=== PATIENT | male | born 1940 | race Caucasian/White ===

== ENCOUNTER 2020-08-23 17:44 | Emergency (ER) | payer OTHER, SELFPAY ==
[2020-08-23 17:46] VITALS: BP 126/96; PULSE 57; RESP 16; TEMP 35.8; O2SAT 96; BMI 16.7
[2020-08-23 17:51] VITALS: BP 126/96; PULSE 58; RESP 18; TEMP 35.8; O2SAT 96
--- NOTE | 2020-08-23 18:00 | CM.ED ---
SOCIAL WORK Collaboration with Dr. Conley. Patient intoxicated. Plan for Crisis to evaluate once medically cleared. Ilene Serna, FINANCIAL REP, [employer]
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
--- NOTE | 2020-08-23 18:02 | EKG12_ITS ---
Test Reason : MENTAL HEALTH Blood Pressure : / mmHG Vent. Rate : 057 BPM Atrial Rate : 057 BPM P-R Int : 242 ms QRS Dur : 088 ms QT Int : 428 ms P-R-T Axes : 084 050 075 degrees QTc Int : 416 ms Sinus bradycardia with 1st degree A-V block Septal [place], age undetermined cannot be excluded Confirmed by JEREL CARPENTER, KIT ([id number]), technical editor ALEXANDR STODDARD ([id number]) on 08/29/2020 11:53:09 AM Referred By: JOEL Confirmed By:KIT BELTRÁN MD
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
[2020-08-23 18:37] LABS: Absolute Lymphocyte Count 2.85 X10^3/uL (0.83-4.51); Absolute Neutrophil Count 5.3 X10^3/uL (2.0-7.7); Basophil# 0.06 X10^3/uL; Basophil% 0.6 % (0-1); Eosinophil# 0.21 X10^3/uL; Eosinophils% 2.2 % (0-5); Hematocrit 40.6 % (40-54); Hemoglobin 13.2 g/dL (13.0-16.5); Lymphocyte # 2.85 X10^3/ul (4.0); Lymphocyte % 30.2 % (19-41); Mean Corp Hgb Conc 32.5 g/dL (32-36); Mean Corpuscular Volume 98.3 fL (80-94); Mean Platelet Vol. 10.3 fl (6.2-12.0); Monocyte# 0.97 X10^3/uL; Monocyte% 10.3 % (0-10); NRBC Flagged by Analyzer 0 % (0-5); Neutrophil # 5.27 X10^3/uL (2.7-7.7); Neutrophil % 55.7 % (47-70); Platelet Count 299 K/mm3 (150-450); RBC Distribution Width CV 13.9 % (11.6-14.6); RBC Distribution Width SD 50.1 fl (35.1-43.9); Red Blood Count 4.13 M/mm3 (4.6-6.2); White Blood Count 9.5 K/mm3 (4.4-11.0)
[2020-08-23 18:42] LABS: ALB/GLOB Ratio 0.8 RATIO (0.9-2.4); AST(SGOT) 13 U/L (15-37); Alanine Aminotransfer ALT/SGPT 13 U/L (16-61); Alkaline Phosphatase 95 U/L (45-117); Anion Gap 8 (5-15); BUN 12 mg/dL (7-18); BUN/Creat Ratio 11.4 RATIO (10-20); Calcium,Total 8.3 mg/dL (8.5-10.1); Chloride 108 mmol/L (98-107); Creatinine, Serum 1.05 mg/dL (0.70-1.30); EST Glomerular Filtration Rate 73 mL/min (>60); Est Glom Filt Rate - Afr Amer 88 mL/min (>60); Estimated Creatinine Clearance 45.84 ml/min; Globulin 3.9 g/dL (2.2-4.2); Glucose 98 mg/dL (74-106); Potassium 3.7 mmol/L (3.5-5.1); Protein, Total 6.9 g/dL (6.4-8.2); Sodium Level 141 mmol/L (136-145); Thyroid Stim Hormone (TSH) 2.81 uIU/mL (0.358-3.74)
[2020-08-23 18:42] LABS: Bacteria 0 SEEN /hpf (None Seen); Mucous, Urine 0 SEEN /hpf (<or=2+); Red Blood Cells-Urine 0 SEEN /hpf (0-5); Squamous Epithelial Cells - UA 0 SEEN /hpf (0-5); White Blood Cells 0 SEEN /hpf (0-5)
[2020-08-23 18:44] LABS: Color, Urine Yellow (Yellow); Glucose, Dipstick Normal (Normal); Ketone-Dipstick Negative (Negative); Leukocyte Esterase-Dipstick Negative /ul (Negative); Nitrite-Dipstick Negative (Negative); Occult Blood-Urine Negative /ul (Negative); Protein-Dipstick Negative (Negative); Urine Bilirubin Dipstick Negative (Negative); Urine Clarity Clear (Clear); Urine Urobilinogen Normal (Normal)
--- NOTE | 2020-08-23 18:58 | RAD_ITS ---
STUDY: X-RAY CHEST REASON FOR EXAM: Male, 80 years old. SUICIDAL, WEAKNESS TECHNIQUE: AP portable COMPARISON: None. FINDINGS: Lungs are hyperinflated but clear. There are multiple tiny metallic densities within the soft tissues of the left chest wall and possibly lung. There is no demonstrated pleural abnormality. Normal size heart. Normal mediastinum and chavez. Normal visualized pulmonary arteries. Normal visualized aortic arch and descending thoracic aorta. Dorsal spine and shoulders demonstrates degenerative changes.. Normal visualized clavicles. Old healed left rib fractures. There is no demonstrated abnormality of the visualized soft tissue structures of the upper abdomen. RAD/Chest 1 View (Portable) IMPRESSION: No acute cardiopulmonary pathology Electronically Signed: Rodrigue Wesley MD at 19:20 EDT , Service support ,
[2020-08-23 19:27] LABS: Amphetamine Urine VISTA NEGATIVE (<1000 ng/mL); Barbiturate Urine VISTA NEGATIVE (< 200 ng/mL); Benzodiazepine Urine VISTA NEGATIVE (< 200 ng/mL); Cocaine Urine VISTA NEGATIVE (< 300 ng/mL); Ecstacy Urine VISTA NEGATIVE (< 500 ng/mL); Methadone Urine VISTA NEGATIVE (< 300 ng/mL); PCP Urine VISTA NEGATIVE (< 25 ng/mL); THC Urine VISTA NEGATIVE (< 50 ng/mL); Vista UDS pH Range 5
[2020-08-23 21:04] VITALS: RESP 16
[2020-08-23 22:14] VITALS: PULSE 14
[2020-08-23 23:34] VITALS: RESP 14
[2020-08-23 23:46] VITALS: BP 154/49; PULSE 63; RESP 16; O2SAT 94
[2020-08-24] VITALS (17 sets, daily range): BP systolic 125–143; BP diastolic 35–107; PULSE 57–83; RESP 14–22; TEMP 36; O2SAT 92–98
[2020-08-24] MEDS: Gabapentin 100 MG Capsule PO (00:23)
[2020-08-24] MEDS: traMADol 50 MG Tablet PO ×2 (00:23→10:07)
--- NOTE | 2020-08-24 00:37 | ED.RN ---
c/o chest pain and pain going down left arm. hr 59 po 97 ra 138/66. c/o sob. rated pain 8 resp here to do ekg.
--- NOTE | 2020-08-24 00:41 | EKG12_ITS ---
Test Reason : CP Blood Pressure : / mmHG Vent. Rate : 058 BPM Atrial Rate : 058 BPM P-R Int : 240 ms QRS Dur : 056 ms QT Int : 408 ms P-R-T Axes : 092 011 059 degrees QTc Int : 400 ms Sinus bradycardia with 1st degree A-V block Septal [place], age undetermined Abnormal ECG Confirmed by JEREL CARPENTER, KIT ([id number]), assistant production editor ALEXANDR STODDARD ([id number]) on 08/29/2020 12:27:29 PM Referred By: ANGELA Confirmed By:KIT BELTRÁN MD
[2020-08-24] MEDS: Famotidine 200 MG/20 ML MDV 20 MG in 0.9% Normal Saline (Pres. free 8 ML 300 MG IV (00:55)
--- NOTE | 2020-08-24 01:00 | EKG12_ITS ---
Test Reason : CP Blood Pressure : / mmHG Vent. Rate : 057 BPM Atrial Rate : 057 BPM P-R Int : 234 ms QRS Dur : 084 ms QT Int : 412 ms P-R-T Axes : 081 038 083 degrees QTc Int : 401 ms Sinus bradycardia with 1st degree A-V block Septal infarct , age undetermined Abnormal ECG Confirmed by JEREL CARPENTER, KIT ([id number]), index editor ALEXANDR STODDARD ([id number]) on 08/29/2020 12:27:52 PM Referred By: ANGELA Confirmed By:KIT BELTRÁN MD
[2020-08-24] MEDS: Gabapentin 100 MG Capsule 200 MG PO (02:07)
--- NOTE | 2020-08-24 02:40 | NURSING ---
CALLED CRISIS AND FAXED CHART
--- NOTE | 2020-08-24 07:59 | NURSING ---
called crisis, talked to curtis. will fax chart to crisis
--- NOTE | 2020-08-24 08:07 | NURSING ---
FAXED PINK SLIP AND 3 EKGS TO ROBBY, ALEXIS
--- NOTE | 2020-08-24 09:01 | NURSING ---
ALEXIS BURNHAM, CALLED TO TALK TO PATIENT. SHE WILL COME SEE HIM
--- NOTE | 2020-08-24 09:20 | NURSING ---
TEJ, [facility]IS[facility], HERE FOR PATIENT
[2020-08-24] MEDS: Gabapentin 600 MG Tablet PO (10:08)
--- NOTE | 2020-08-24 11:52 | ED.RN ---
per arpita at the counseling center [facility] [place], they knew nothing of the pt coming. a message sent to the counseling center for arpita to call back.
--- NOTE | 2020-08-24 12:10 | ED.RN ---
spoke with arpita at crisis. she will call when she has more info.
--- NOTE | 2020-08-24 15:58 | ED.RN ---
PT AWAITING ACCEPTANCE OF REFERRAL MADE TO THE [facility]. PER MAGALI AIRPLANE CHARTER CLERK, SHE WILL CALL TO CHECK ON THE STATUS OF THE CHART WITHIN THE NEXT HALF AN HOUR.
== END 2020-08-24 19:25 ==
PROVIDERS: Emergency Medicine; Emergency Provider Emergency Medicine; PCP Dentist
DX: F10.129 Alcohol abuse with intoxication, unspecified (principal); Y90.8 Blood alcohol level of 240 mg/100 ml or more; F32.9 Major depressive disorder, single episode, unspecified; V59.88XA Occupant (driver) (passenger) of pick-up truck or van injured in other specified transport accidents, initial encounter; Y92.9 Unspecified place or not applicable; R07.9 Chest pain, unspecified; R06.02 Shortness of breath; R45.851 Suicidal ideations; F17.200 Nicotine dependence, unspecified, uncomplicated
CPT/HCPCS: 36415; 70450; 71045; 72125; 80053; 80307; 80320; 81001; 84443; 84484; 85025; 87635; 93005; 96365; 99285; A4216; G0480; J3490; U0003

== ENCOUNTER 2021-06-29 14:01 | Emergency (ER) | payer OTHER, SELFPAY ==
[2021-06-29 14:02] VITALS: BP 138/62; PULSE 88; RESP 18; TEMP 37.1; O2SAT 97; BMI 14.3
[2021-06-29 15:08] LABS: Absolute Lymphocyte Count 0.96 X10^3/uL (0.83-4.51); Absolute Neutrophil Count 9.1 X10^3/uL (2.0-7.7); Basophil# 0.04 X10^3/uL; Basophil% 0.4 % (0-1); Eosinophil# 0.01 X10^3/uL; Eosinophils% 0.1 % (0-5); Hematocrit 36.8 % (40-54); Hemoglobin 12.3 g/dL (13.0-16.5); Lymphocyte # 0.96 X10^3/ul (0.83-4.51); Lymphocyte % 8.9 % (19-41); Mean Corp Hgb Conc 33.4 g/dL (32-36); Mean Corpuscular Volume 89.8 fL (80-94); Mean Platelet Vol. 10.6 fl (6.2-12.0); Monocyte# 0.62 X10^3/uL; Monocyte% 5.8 % (0-10); NRBC Flagged by Analyzer 0 % (0-5); Neutrophil # 9.08 X10^3/uL (2.7-7.7); Neutrophil % 84.5 % (47-70); Platelet Count 288 K/mm3 (150-450); RBC Distribution Width CV 13.3 % (11.6-14.6); RBC Distribution Width SD 44.1 fl (35.1-43.9); White Blood Count 10.7 K/mm3 (4.4-11.0)
[2021-06-29 15:23] LABS: Anion Gap 7 (5-15); BUN 14 mg/dL (7-18); BUN/Creat Ratio 11.5 RATIO (10-20); Calcium,Total 8.7 mg/dL (8.5-10.1); Chloride 104 mmol/L (98-107); Creatinine, Serum 1.22 mg/dL (0.70-1.30); EST Glomerular Filtration Rate 61 mL/min (>60); Est Glom Filt Rate - Afr Amer 74 mL/min (>60); Estimated Creatinine Clearance 32.02 ml/min; Glucose 153 mg/dL (74-106); Potassium 3.8 mmol/L (3.5-5.1); Sodium Level 135 mmol/L (136-145)
[2021-06-29 15:34] LABS: Alcohol, Blood (Medical)-Serum < 3.0 mg/dL
--- NOTE | 2021-06-29 15:41 | EX.ED.DYSGE1 ---
HPI History of Present Illness Chief Complaint: Suicidal Informant: patient Narrative Narrative: Patient presents by private vehicle with depression symptoms. Patient eventually during discussion states sudden symptoms yesterday. He denies suicidal homicidal ideations. He states he is followed by [facility] he is on trazodone to help him sleep. He denies any history of anxiety depression or PTSD. He denies bipolar or schizophrenia. Patient currently under house arrest, states for the past 3 months, will be on it for another month. He had a DUI with alcohol. He stopped drinking in August. He has been on Vivitrol shots monthly. He denies illicit drug use. He lives alone. He states he called his cousin who took him to the ED today. Patient denies fevers cough urine symptoms. Denies vomiting or diarrhea. He states occasionally use milk of magnesia to help with bowel movements. Patient denies any auditory hallucinations. Upon discussion of visual hallucinations, he states he seeds chairs in his home however states they are there. Prior similar symptoms: No PFSH PFSH Medical History (Updated 06/29/21 @ 17:[address] Iain Krishna DO) Alcohol abuse Depression Home Medications trazodone 100 mg PO QHS 06/29/21 [History Last Taken Unknown] Allergy/AdvReac Type Severity Reaction Status Date / Time No Known Allergies Allergy Verified 06/29/21 14:05 Social History Smoking Status: Current every day smoker tobacco type: cigarettes ROS ROS ED Constitutional Constitutional ED: Denies chills, fever(s) or sweats Eyes Eyes: Denies change in vision ENT ENT ED: Denies dysphagia or sore throat Cardiovascular Cardiovascular: Denies chest pain, leg edema, palpitations or racing heartbeat Respiratory/Chest Respiratory/Chest: Denies cough, dyspnea or dyspnea on exertion Gastrointestinal Gastrointestinal: Denies abdominal pain, diarrhea, nausea or vomiting Genitourinary Genitourinary ED: Denies dysuria, hematuria or urinary frequency Musculoskeletal Musculoskeletal: Denies back pain, extremity pain or neck pain Integumentary Denies rash or wounds Neurologic Neurologic: Denies headache(s), paresthesias or weakness Psychiatric Psychiatric: Reports depression; Denies hallucinations, homicidal ideation or visual hallucinations EXAM Physical Exam Const Vital Signs: 06/29/21 14:02 06/29/21 17:17 Temperature 98.7 F Temperature Source Temporal Pulse Rate 88 66 Respiratory Rate 18 18 Blood Pressure 138/62 H 159/61 H Blood Pressure Mean 87 93 Pulse Ox 97 97 Oxygen Delivery Method Room Air Room Air Positive cachectic and unkempt General Appearance ED: unkempt, cachectic and NAD Nutritional Appearance: cachectic HEENT Reports moist mucous membranes normocephalic and atraumatic Eyes PERRL, EOMs intact bilaterally and conjunctivae normal General Eye ED: Yes normal appearance of both eyes Neck no lymphadenopathy and supple General: Negative for tenderness Chest Wall Chest: Negative for tenderness Resp normal respiratory effort and normal air movement Effort and Inspection: symmetric chest movement; Negative for respiratory distress Cardio regular rate, regular rhythm and no murmurs Peripheral Pulses: pulses 2+ throughout GI normal to inspection, nondistended, normoactive bowel sounds and non-tender Palpation: Negative for guarding or rebound tenderness present Back/Spine no CVA tenderness and no thoracic nor lumbar tenderness Extremity normal to inspection General Extremety ED: Negative for edema or tenderness General Extremity: Negative for edema Neuro oriented x3 and no sensory deficits noted Sensorium / Orientation: awake and alert Psych Psych Narrative: Denies suicidal or homicidal ideations. Tearful with flat affect. Appearance: unkempt Skin no rashes or lesions noted and no wounds MDM MDM MDM Narrative Medical decision making narrative: Patient depression symptoms tearful on exam. Mental health work-up with clearance initiated. Clinical Resource Coordinator was present, came out discussed patient admitted to attempted overdose with trazodone at 11 PM that was over 4 hours ago. Patient admitted to taking 11 trazodone tabs. We will add an aspirin and Tylenol level given EKG. Will monitor. We will plan to admit to psychiatric facility. 1800: Multiple reevaluation patient remained stable. Work-up with negative labs including aspirin and Tylenol. His vitals remained stable. Patient evaluated by case management in the ED, agrees the patient will need to be admitted to the facility. He is currently medically cleared. [place] slip will be filled out. Lab Data Attestation: I reviewed the patient's lab results. Labs: Laboratory Results - last 24 hr 06/29/21 06/29/21 06/29/21 14:55 14:55 14:55 WBC 10.7 RBC 4.10 L Hgb 12.3 L Hct 36.8 L MCV 89.8 MCH 30.0 MCHC 33.4 RDW Std Deviation 44.1 H RDW Coeff of Lauren 13.3 Plt Count 288 MPV 10.6 Immature Gran % (Auto) 0.300 Neut % (Auto) 84.5 H Lymph % (Auto) 8.9 L [place] % (Auto) 5.8 Eos % (Auto) 0.1 Baso % (Auto) 0.4 Absolute Neuts (auto) 9.1 H Absolute Lymphs (auto) 0.96 Nucleated RBC % 0 Sodium 135 L Potassium 3.8 Chloride 104 Carbon Dioxide 24.0 Anion Gap 7 BUN 14 Creatinine 1.22 Estim Creat Clear Calc 32.02 Est GFR (MDRD) Af Amer 74 Est GFR (MDRD) Non-Af 61 BUN/Creatinine Ratio 11.5 Glucose 153 H Calcium 8.7 Salicylates Acetaminophen Ur Drug Screen Comment Ethyl Alcohol < 3.0 06/29/21 06/29/21 14:55 17:45 WBC RBC Hgb Hct MCV MCH MCHC RDW Std Deviation RDW Coeff of Lauren Plt Count MPV Immature Gran % (Auto) Neut % (Auto) Lymph % (Auto) [place] % (Auto) Eos % (Auto) Baso % (Auto) Absolute Neuts (auto) Absolute Lymphs (auto) Nucleated RBC % Sodium Potassium Chloride Carbon Dioxide Anion Gap BUN Creatinine Estim Creat Clear Calc Est GFR (MDRD) Af Amer Est GFR (MDRD) Non-Af BUN/Creatinine Ratio Glucose Calcium Salicylates 6.4 Acetaminophen < 2.0 L Ur Drug Screen Comment Ethyl Alcohol EKG Initial EKG: Attestation: I personally reviewed and interpreted this EKG as follows: Discharge Plan Triage Chief Complaint: Suicidal Other Complaint: Overdose ED Provider: Iain Krishna Dx/Rx/DC Orders Clinical Impression: Depression, Ingestion of unknown drug Prescriptions: No Action trazodone 100 mg Tablet 100 mg PO QHS RF: 0 Primary Care Provider: Care Physician,No Primary Referrals: Care Physician,No Primary [Primary Care Provider] -
--- NOTE | 2021-06-29 15:50 | EKG12_ITS ---
Test Reason : MENTAL CLEARANCE Blood Pressure : / mmHG Vent. Rate : 069 BPM Atrial Rate : 069 BPM P-R Int : 206 ms QRS Dur : 086 ms QT Int : 396 ms P-R-T Axes : 088 031 089 degrees QTc Int : 424 ms Normal sinus rhythm Anteroseptal infarct , age undetermined Abnormal ECG Confirmed by JEREL CARPENTER, KIT ([id number]), script editor ALEXANDR STODDARD ([id number]) on 07/03/2021 10:36:50 AM Referred By: [email or web address] Confirmed By:KIT BELTRÁN MD
--- NOTE | 2021-06-29 16:56 | CM.ED ---
SOCIAL WORK ASSESSMENT Referral Source: Reason for Consult: Mental Health Chief Compliant: KATIE met with patient, and he reported he overdose on ?sleeping pills?. He reported he wanted to . He stated that the feeling started yesterday. Patient took 10-11 sleeping pills. Marital/Social History: Single Living Situation: Lives by himself. Plans to go to [facility] after he rents or sells his house. Support/Resources: Initially said ?myself? for support but then stated his cousin, Francoise, who brought him to the ED was a support. History: Patient was in the [place] for 6 years. No combat. Honorable discharge. Gets VA services through [facility]. Education and Employment History: Patient is retired. He did not graduate high school. The last year attended in school was the 12th grade. 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 Mental Health Treatment/History: Patient reports that he receives his psychiatric treatment from the [facility]. He sees the staff at the [facility] monthly. Patient said that he gets his vivitrol shot monthly from Neena at the [facility]. Patient said that he was hospitalized for psych treatment at [facility] one year ago. Patient reports he is med compliant ?except for yesterday and today?. Triggers/Stressors: Patient said that he worries about his health and ?my groceries?. Patient said that his stepdaughter does his grocery shopping and patient any issues with not having enough food. Coping Skills: ?nothing? Substance Abuse History: Patient denied drug use. Patient denied alcohol use. He reports he has not drank alcohol since 08/23. He said that he has gotten the vivitrol shot since August 2020. Abuse: Patient denied any abuse Risk to Self/Others: Suicidal- Patient reports that he is suicidal. He reports he attempted suicide this morning using his ?sleeping pills?. He reports that he attempted at approximately 11:00am. He said that when he overdosed, he called his cousin Francoise from bed and said ?can you take me to the ED? I took sleeping pills?. Patient reports he wanted to , and the thoughts began yesterday. He reports that he took 11 pills today. He also reported no previous suicide attempt. Homicidal: Denied Violence: Denied Mental Status Exam: Orientation: X4 Memory: Intact Appearance/General Behavior: Disheveled, very skinny, tearful and at times he does not answer due to him being tearful and appearing to be emotional. Mood and Affect: Depressed mood and affect Thought Process: Patient denied AH/VH General Intellectual Functioning: Average Judgement: Impaired due to mental health Insight: Poor Assessment: Patient reports overdosing on sleeping pills and wanting to . This occurred at 11:00am this morning. Thus, patient needs inpatient psych hospitalization for medication management and stabilization. Patient is wearing an ankle bracelet. He reports he is on probation through municipal court. He reports that the ankle bracelet is related to his DUI. He reports he has worn it for 3 months and now must wear it an additional month. Plan: Inpatient psych unit Kacie DIAZ
--- NOTE | 2021-06-29 16:57 | CM.ED ---
SOCIAL WORK ASSESSMENT Referral Source: Reason for Consult: Mental Health Chief Compliant: KATIE met with patient, and he reported he overdose on ?sleeping pills?. He reported he wanted to . He stated that the feeling started yesterday. Patient took 10-11 sleeping pills. Marital/Social History: Single Living Situation: Lives by himself. Plans to go to [facility] after he rents or sells his house. Support/Resources: Initially said ?myself? for support but then stated his cousin, Francoise, who brought him to the ED was a support. History: Patient was in the [employer] for 6 years. No combat. Honorable discharge. Gets VA services through [facility]. Education and Employment History: Patient is retired. He did not graduate high school. The last year attended in school was the 12th grade. 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 Mental Health Treatment/History: Patient reports that he receives his psychiatric treatment from the [facility]. He sees the staff at the [facility] monthly. Patient said that he gets his vivitrol shot monthly from Neena at the [facility]. Patient said that he was hospitalized for psych treatment at [facility] one year ago. Patient reports he is med compliant ?except for yesterday and today?. Triggers/Stressors: Patient said that he worries about his health and ?my groceries?. Patient said that his stepdaughter does his grocery shopping and patient any issues with not having enough food. He said ? I have plenty of food?. Coping Skills: ?nothing? Substance Abuse History: Patient denied drug use. Patient denied alcohol use. He reports he has not drank alcohol since 08/23. He said that he has gotten the vivitrol shot since August 2020. Abuse: Patient denied any abuse Risk to Self/Others: Suicidal- Patient reports that he is suicidal. He reports he attempted suicide this morning using his ?sleeping pills?. He reports that he attempted at approximately 11:00am. He said that when he overdosed, he called his cousin Francoise from bed and said ?can you take me to the ED? I took sleeping pills?. Patient reports he wanted to , and the thoughts began yesterday. He reports that he took 11 pills today. He also reported no previous suicide attempt. Homicidal: Denied Violence: Denied Mental Status Exam: Orientation: X4 Memory: Intact Appearance/General Behavior: Disheveled, very skinny, tearful and at times he does not answer due to him being tearful and appearing to be emotional. Mood and Affect: Depressed mood and affect Thought Process: Patient denied AH/VH General Intellectual Functioning: Average Judgement: Impaired due to mental health Insight: Poor Assessment: Patient reports overdosing on sleeping pills and wanting to . This occurred at 11:00am this morning. Thus, patient needs inpatient psych hospitalization for medication management and stabilization. Patient is wearing an ankle bracelet. He reports he is on probation through municipal court. He reports that the ankle bracelet is related to his DUI. He reports he has worn it for 3 months and now must wear it an additional month. Plan: Inpatient psych unit Kacie DIAZ
--- NOTE | 2021-06-29 16:59 | ED.RN ---
DE called and does not have a bed for pt. They would like called when pt is admitted. # is [phone] ext [phone] They would also like chart faxed to them at [phone] GIOVANI Vora
[2021-06-29 17:02] LABS: Acetaminophen (Tylenol) Level < 2.0 ug/mL (10.0-30.0); Salicylate 6.4 mg/dL (2.8-20.0)
[2021-06-29 17:17] VITALS: BP 159/61; PULSE 66; RESP 18; O2SAT 97
--- NOTE | 2021-06-29 18:03 | CM.ED ---
KATIE Note KATIE called [facility] and spoke to Fareed in the transfer center ([id number]). He said to speak to Sally. Sally said that they do not have [facility]. She said to look elsewhere for the level of care patient needs. She requested that she be called and advised where patient is discharged from [place] to. Her contact number is [phone] Ext [phone]. KATIE made referral to [facility]. Faxed referral to [facility] for review. KATIE received call from Geni patient's daughter wanting a update [phone]. She was updated. She reports that she is the HCPOA for patient. Plan: Inpatient psych Kacie DIAZ
[2021-06-29 18:11] LABS: Amphetamine Urine VISTA NEGATIVE (<1000 ng/mL); Barbiturate Urine VISTA NEGATIVE (< 200 ng/mL); Benzodiazepine Urine VISTA POSITIVE (< 200 ng/mL); Cocaine Urine VISTA NEGATIVE (< 300 ng/mL); Ecstacy Urine VISTA POSITIVE (< 500 ng/mL); Methadone Urine VISTA NEGATIVE (< 300 ng/mL); PCP Urine VISTA NEGATIVE (< 25 ng/mL); THC Urine VISTA NEGATIVE (< 50 ng/mL); Vista UDS pH Range 6
--- NOTE | 2021-06-29 19:24 | CM.ED ---
KATIE Note SW called [facility]. They can take patient but not until 8 am tomorrow. KATIE called and made referral to INP([facility]) SW made referral to [facility]. SW received call from patient's stepdaughter, Stephie and she wanted an update. SW updated her and advised her to speak to her stepsister, Geni Bagley for an update and she agreed. Stephie's number is [phone]. Plan: Inpatient Psych Kacie DIAZ
[2021-06-29 20:24] VITALS: BP 152/75; PULSE 70; RESP 16; TEMP 37.4; O2SAT 95
--- NOTE | 2021-06-29 21:03 | CM.ED ---
Addendum entered by Kacie Severino 06/29/21 21:22: When social sciences chair spoke to patient's daughter, Geni she indicated she would update her step sister, Stephie. Kacie DIAZ Original Note: KATIE received call from Joseline at [facility]. They can accept patient. KATIE faxed additional information to [facility]. SW spoke to patient and updated him regarding the discharge plan to [facility]. SW called patient's daughter and updated her about patient's status. Patient said that he probably should call probation tomorrow. SW agreed that was a good idea. Patient said I don't have their number. SW provided patient with [facility]. SW called [facility]. Accepting MD is Dr. Barnett. Patient will be in [facility]. RN to RN [phone] Bed [address] Of Note, KATIE had provided Ikita from [facility] with information about patient' s [facility] contact, Sally [phone]. KATIE updated [facility] at [facility] and provided her with information as to where patient is going, room assignment, unit ([facility]) and unit phone number. Sally reports no other information needed. [place] to arrange transport Plan: [facility] Kacie DIAZ
[2021-06-29 23:24] VITALS: RESP 16
== END 2021-06-29 23:24 ==
PROVIDERS: Emergency Provider Emergency Medicine
DX: T43.212A Poisoning by selective serotonin and norepinephrine reuptake inhibitors, intentional self-harm, initial encounter (principal); Y92.009 Unspecified place in unspecified non-institutional (private) residence as the place of occurrence of the external cause; F32.9 Major depressive disorder, single episode, unspecified; F17.210 Nicotine dependence, cigarettes, uncomplicated
CPT/HCPCS: 80048; 80307; 80329; 82077; 85025; 87426; 93005; 99285; P9612; G0480

== ENCOUNTER 2025-07-06 12:48 | Inpatient (IN) | payer OTHER, SELFPAY ==
[2025-07-06] VITALS (16 sets, daily range): BP systolic 126–161; BP diastolic 58–76; PULSE 74–98; RESP 16–18; TEMP 36.3–37.1; O2SAT 90–97; BMI 19.5
--- NOTE | 2025-07-06 12:53 | EKG12_ITS ---
Test Reason : REPEAT Blood Pressure : */* mmHG Vent. Rate : 78 BPM Atrial Rate : 78 BPM P-R Int : 192 ms QRS Dur : 68 ms QT Int : 400 ms P-R-T Axes : 79 -54 -51 degrees QTcB Int : 456 ms Normal sinus rhythm with sinus arrhythmia Left axis deviation Inferior infarct , age undetermined Anteroseptal infarct , age undetermined ST & T wave abnormality, consider lateral ischemia Abnormal ECG Confirmed by Elkin De La Vega ([id number]), city editor RANGEL BERNARDO ([id number]) on 07/07/2025 8:17:43 AM Referred By: Confirmed By: Elkin De La Vega
[2025-07-06 13:11] LABS: Hematocrit 42.5 % (40-54); Hemoglobin 14.0 g/dL (13.0-16.5); Immature Granulocytes Count 0.060 X10^3/uL (0.0-0.0); Mean Corp Hgb Conc 32.9 g/dL (32-36); Mean Corpuscular Volume 88.5 fL (80-94); Mean Platelet Vol. 10.3 fl (6.2-12.0); NRBC Flagged by Analyzer 0 % (0-5); Platelet Count 475 K/mm3 (150-450); RBC Distribution Width CV 13.0 % (11.6-14.6); RBC Distribution Width SD 41.8 fl (35.1-43.9); Red Blood Count 4.80 M/mm3 (4.6-6.2); White Blood Count 15.1 K/mm3 (4.4-11.0)
[2025-07-06 13:19] LABS: Prothrombin Time (Protime)PT. 13.8 SECONDS (11.7-14.9)
--- NOTE | 2025-07-06 13:20 | RAD_ITS ---
PROCEDURE: CHEST 1 VIEW (PORTABLE) 07/06/2025 REASON FOR EXAM: CHEST PAIN TECHNIQUE: Frontal view of the chest. COMPARISON: August 23, 2020 FINDINGS: Hardware: [place] is seen overlying the patient's left chest. Heart: Normal. The aorta is atherosclerotic. Lungs: Clear Bones: Minimal degenerative change about the shoulders. RAD/Chest 1 View (Portable) IMPRESSION: No acute cardiopulmonary process. Reading Location: [id number]
[2025-07-06 13:42] LABS: Anion Gap 13 (5-15); BUN 20 mg/dL (4-19); BUN/Creat Ratio 15.0 RATIO (10-20); Calcium,Total 8.9 mg/dL (7.6-11.0); Carbon Dioxide 23.7 mmol/L (21.0-32.0); Chloride 107 mmol/L (98-108); Estimated Creatinine Clearance 41.60 ml/min (50-250); Glucose 113 mg/dL (70-99); Potassium 3.9 mmol/L (3.3-5.1)
[2025-07-06 13:45] LABS: Troponin T High Sensitivity 2060 ng/L (<=22)
[2025-07-06] MEDS: HEPARIN/D5w 25,000 UNITS 25,000 UNITS/250 ML IV.SOLN. 8.1 UNITS CONT INF (14:10)
[2025-07-06] MEDS: Heparin Injection (Vial) 5,000 UNIT/ML VIAL 4000 UNIT IV (14:11)
[2025-07-06 14:16] LABS: Partial Thromboplast Time 31.4 Seconds (24.1-36.2)
--- NOTE | 2025-07-06 14:29 | EKG12_ITS ---
Test Reason : CP Blood Pressure : */* mmHG Vent. Rate : 86 BPM Atrial Rate : 86 BPM P-R Int : 180 ms QRS Dur : 72 ms QT Int : 382 ms P-R-T Axes : 84 -50 90 degrees QTcB Int : 457 ms Normal sinus rhythm with sinus arrhythmia Left axis deviation Cannot rule out Inferior infarct , age undetermined Anteroseptal infarct (cited on or before 24-Aug-2020) ST & T wave abnormality, consider lateral ischemia Abnormal ECG Confirmed by Elkin De La Vega ([id number]), index editor RANGEL BERNARDO ([id number]) on 07/07/2025 8:18:02 AM Referred By: JOSE Confirmed By: Elkin De La Vega
--- NOTE | 2025-07-06 14:51 | EDS_ITS ---
HPI History of Present Illness Chief Complaint: Chest Pain Narrative Narrative: Patient is an 84-year-old male presenting to the emergency department for chest pain since yesterday. Patient reports that it is left-sided. Does not radiate to his back, jaw or arm. [facility] Has a history of hypertension. Denies any family history of sudden cardiac , recent syncopal events or history of arrhythmias. States that the chest pain hurts more when he lays on his left side. He denies any history of blood clots. Reports some cough and congestion last week. He denies any cardiac history. When I evaluated the patient, he did not have chest pain. PFSH PFSH Medical History Depression Alcohol abuse Home Medications ?Medication ?Instructions ?Recorded ?Last Taken ?Type trazodone 100 mg tablet 100 mg PO QHS 06/29/21 Unkno wn History Allergy/AdvReac Type Severity Reaction Status Date / Time No Known Allergies Allergy Verified 07/06/25 12:49 Social History Smoking Status: Former smoker ROS ROS ED ROS Narrative See HPI EXAM Physical Exam Narrative Exam Narrative: Vital signs: Reviewed General: Alert and oriented. No acute distress HEENT: Head is normocephalic and atraumatic, sinuses nontender, pupils equal round and reactive. Nares are patent. Oropharynx and throat exams normal. Neck: Supple without lymphadenopathy nontender Cardiovascular: Regular rate and rhythm, no murmurs. No rubs or gallops. Normal S1 and S2. Normal and equal pulses throughout. Chest: Chest wall is atraumatic. There is no reproducible tenderness to palpation. Respiratory: Clear to auscultation bilaterally. No wheezes, rales, rhonchi Abdominal: Soft and nontender. Normal bowel sounds. No guarding or rebound. Nonsurgical abdomen Extremities: No tenderness. No bruising. Normal range of motion. Normal sensation. Skin: No rash or redness. Neurological: Cranial nerves II through XII are grossly intact. Normal strength and sensation. Normal cerebellar function The rest of the physical exam is unremarkable Const Vital Signs: 07/06/25 12:49 07/06/25 12:53 07/06/25 13:49 Temperature 98 F Temperature Source Oral Pulse Rate 98 78 Respiratory Rate 18 16 Blood Pressure 136/62 H 127/58 H Blood Pressure Mean 86 81 Pulse Ox 92 90 90 Oxygen Delivery Method Room Air Room Air Room Air 07/06/25 14:00 07/06/25 14:30 Temperature 97.4 F L Temperature Source Pulse Rate 94 83 Respiratory Rate 16 Blood Pressure 126/63 H 151/70 H Blood Pressure Mean 84 97 Pulse Ox 94 97 Oxygen Delivery Method MDM MDM MDM Narrative Medical decision making narrative: Patient is a 84-year-old male presenting to the emergency department for chest pain. Patient was seen and examined. Vitals are stable. Patient resting bed comfortably no acute distress. EKG shows sinus rhythm with a sinus arrhythmia. There is some mild ST elevation in V2 and V3 with coved ST morphology concerning for Brugada syndrome. Patient is pain free at time of my evaluation. Initial troponin of 2060. 324 mg chewable aspirin and heparin drip started. I did speak to aircraft electronics technical officer silicator, Dr. De La Vega, who recommended speaking to aircraft electronics technical officer instructor creeler, Dr. Whitney. He will be taking the patient to he lab animal technologist due to concern for NSTEMI with brugada EKG findings. Updated patient and at bedside of the findings and the plan. I also did speak with the hospitalist, Dr. Castro to update her on the patient for when he is out of the lab animal technologist for admission. Labs were reviewed after discussion with silicator. CBC with mild leukocytosis of 15.1. Normal hemoglobin. BMP with a very mild KERMIT, otherwise no significant abnormalities on BMP. Chest x-ray with no acute cardiopulmonary process. Clinical impression NSTEMI Brugada Lab Data Attestation: I reviewed the patient's lab results. Labs: Laboratory Results - last 24 hr 07/06/25 13:02 WBC 15.1 H RBC 4.80 Hgb 14.0 Hct 42.5 MCV 88.5 MCH 29.2 MCHC 32.9 RDW Std Deviation 41.8 RDW Coeff of Lauren 13.0 Plt Count 475 H MPV 10.3 Immature Gran % (Auto) 0.400 Neut % (Auto) 74.5 H Lymph % (Auto) 14.7 L Benzie % (Auto) 9.6 Eos % (Auto) 0.5 Baso % (Auto) 0.3 Absolute Neuts (auto) 11.2 H Absolute Lymphs (auto) 2.22 Nucleated RBC % 0 PT 13.8 INR 1.0 APTT 31.4 Sodium 144 Potassium 3.9 Chloride 107 Carbon Dioxide 23.7 Anion Gap 13 BUN 20 H Creatinine 1.30 H Estim Creat Clear Calc 41.60 L Est GFR (MDRD) Non-Af 55 L BUN/Creatinine Ratio 15.0 Glucose 113 H Calcium 8.9 Troponin T High Sens 2060 H* Radiography Diagnostic Testing: Clinical Impression(s) from Imaging Studies Chest X-Ray 07/06/25 13:20 IMPRESSION: No acute cardiopulmonary process. Reading [id number] Discharge Plan Triage Chief Complaint: Chest Pain ED Provider: Lashay James Dx/Rx/DC Orders Primary Care Provider: [facility]
--- NOTE | 2025-07-06 15:56 | CON.PCM.CA_ITS ---
Assessment & Plan Assessment/Plan (1) Non-STEMI (non-ST elevated myocardial infarction): PLAN: Coronary angiography reveals LAD, diagonal and RCA stenoses. His vessels are heavily calcified. He does have LV dysfunction as well. He will be reasonable to get a CT surgery opinion for heart team approach for revascularization. Patient will be better served by transfer to a tertiary facility for this. At this time, keep the patient on aspirin, statin, low-dose beta-brijesh. He can be resumed on heparin 4 hours after right radial hemostasis. If his blood pressure can tolerate, he can be started on low-dose LOUISA inhibitor as well. He does have CKD and his creatinine will need to be monitored closely. HPI Consult Data Date of Consult: 07/06/25 HPI Narrative Reason for Consultation: Chest pain, non-STEMI HPI Narrative: SHOBHA JOAQUIN, is a 84 M who presents with chest pain that has been going on since last night. In the emergency room EKG showed EKG changes suspicious for LAD territory ischemia. Patient's troponin was elevated. His chest pain had resolved. However due to patient's non-STEMI patient was brought to the Veterinary Practitioner after discussing risks and benefits. He underwent coronary angiography which revealed significant stenosis in the LAD, diagonal 1, RCA. His vessels are heavily calcified. His EF is around 35% with hypokinesis of the mid and distal anterior wall, apex. PFSH Medical History Depression Alcohol abuse Home Medications ?Medication ?Instructions ?Recorded ?Last Taken ?Type trazodone 100 mg tablet 100 mg PO QHS 06/29/21 Unkno wn History Allergy/AdvReac Type Severity Reaction Status Date / Time No Known Allergies Allergy Verified 07/06/25 12:49 Social History Smoking Status: Former smoker Physical Exam Const alert and oriented x3 HEENT normocephalic Eyes no scleral icterus Resp normal respiratory effort Charges/Coding Visit Charges Inpatient E&M: 55450 Init Hosp L1 Objective Data Vital Signs: Vital Signs Temp Pulse Resp BP Pulse Ox O2 Del Method 97.4 F L 83 16 151/70 H 97 Room Air 07/06/25 14:30 07/06/25 14:30 07/06/25 14:30 07/06/25 14:30 07/06/25 14:30 07/06/25 13:49 Oxygen Delivery Method Room Air Weight: 148 lb Body Mass Index (BMI) 19.5 Lab / Micro Data 07/06/25 13:02 07/06/25 13:02 Labs: Laboratory Results - last 24 hr 07/06/25 13:02: WBC 15.1 H, RBC 4.80, Hgb 14.0, Hct 42.5, MCV 88.5, MCH 29.2, MCHC 32.9, RDW Std Deviation 41.8, RDW Coeff of Lauren 13.0, Plt Count 475 H, MPV 10.3, Immature Gran % (Auto) 0.400, Neut % (Auto) 74.5 H, Lymph % (Auto) 14.7 L, [place] % (Auto) 9.6, Eos % (Auto) 0.5, Baso % (Auto) 0.3, Absolute Neuts (auto) 11.2 H, Absolute Lymphs (auto) 2.22, Nucleated RBC % 0, PT 13.8, INR 1.0, APTT 31.4, Sodium 144, Potassium 3.9, Chloride 107, Carbon Dioxide 23.7, Anion Gap 13, BUN 20 H, Creatinine 1.30 H, Estim Creat Clear Calc 41.60 L, Est GFR (MDRD) Non-Af 55 L, BUN/Creatinine Ratio 15.0, Glucose 113 H, Calcium 8.9, Troponin T High Sens 2060 H* Cardiology Labs/Tests 07/06/25 13:02: WBC 15.1 H, RBC 4.80, Hgb 14.0, Hct 42.5, MCV 88.5, MCH 29.2, MCHC 32.9, Plt Count 475 H, MPV 10.3, Immature Gran % (Auto) 0.400, Neut % (Auto) 74.5 H, Lymph % (Auto) 14.7 L, [place] % (Auto) 9.6, Eos % (Auto) 0.5, Baso % (Auto) 0.3, Absolute Neuts (auto) 11.2 H, Nucleated RBC % 0, PT 13.8, INR 1.0, APTT 31.4, Sodium 144, Potassium 3.9, Chloride 107, Carbon Dioxide 23.7, Anion Gap 13, BUN 20 H, Creatinine 1.30 H, Est GFR (MDRD) Non-Af 55 L, BUN/Creatinine Ratio 15.0, Glucose 113 H, Calcium 8.9 Rhythm: EKG: ECHO: Stress Test: Cardiac Cath: PCI: CT Surgery: Holter monitor: EPS: PPM: CXR: Chest CT Scan: Radiography Diagnostic Testing: Radiology Impression Chest X-Ray 07/06/25 13:20 IMPRESSION: No acute cardiopulmonary process. Reading Location: [id number] CHANDAN Risk Score for UA/STEMI Assesmment (YES = 1) Risk Stratification Applicable: No
--- NOTE | 2025-07-06 16:10 | CL.D_ITS ---
Patient Name: SHOBHA JOAQUIN Study Date: 07/06/2025 Performing: Yeni Whitney MD Ht: 73 inches 185.42 cm : 1940 Wt: 148.2 lbs 67.13 kg Age: 84 Gender: male BSA: 1.89 PROCEDURE(S) PERFORMED DC01-([id number])LHC/COR/LV CLINICAL PROFILE AND INDICATIONS Indications: ACS <= 24 hrs, NSTEMI Heart Failure: None CONCLUSIONS Multivessel coronary artery disease as described RECOMMENDATIONS CT surgery consult for heart team approach for revascularization DESCRIPTION OF PROCEDURE The patient arrived to the procedure lab. The risks and benefits of the procedure as well as a full description of our services here and current unavailability of surgical backup were fully explained to the patient and/or their significant other prior to the catheterization. The Timeout was completed, verifying the correct patient and procedure. The patient's procedural site was prepped and draped in the usual fashion. Local anesthetic was given subcutaneously to right radial region with Lidocaine 2%. Using a modified Seldinger technique, arterial access was obtained via the right radial artery, a 6Fr sheath was inserted. Left Coronary Artery selective angiography was performed in multiple views using a 5 Fr. JL3.5 catheter. Left Ventriculography was performed in MURILLO projection using a 5 Fr. JR 4.0. LV to AO pullback pressures were then recorded. Right Coronary Artery selective angiography was then performed in multiple views using a 5 Fr. JR 4 catheter.The arterial sheath was pulled and a TR Band was applied for hemostasis CORONARY ANGIOGRAPHY DOMINANCE: Right Dominant LEFT HEART ASSESSMENT Left Ventricular Ejection Fraction: by LV Gram 35 % Hypokinesis of the mid and distal anterior wall, apex LEFT MAIN: Mild luminal irregularities LEFT ANTERIOR DESCENDING ARTERY: LAD is heavily calcified MID LAD: 90-95 % Stenosis DIAGONAL 1: Proximal - 90 % Stenosis CIRCUMFLEX ARTERY: Mild luminal irregularities RIGHT CORONARY ARTERY: Tortuous, heavily calcified vessel MID RCA: 80-90 % Stenosis COMPLICATIONS No Complications PROCEDURE MEDICATIONS Fentanyl 50 mcg IV Versed 1 mg IV Oxygen: 2 L/min via nasal cannula Heparin given IA 07/06/2025 15:17:56 Verapamil 2.5mg, Ntg 100mcgs, 3000 units of Heparin given IA 07/06/2025 15:17:56 SUMMARY OF HEMODYNAMIC DATA Time AIR REST ECG 14:51:11 AO 130/68 (95) SA 15:23:50 LV 148/0, 16 15:33:55 LV 148/0, 23 15:34:03 LV 150/1, 20 15:35:29 LVp 156/2, 20 15:35:46 AOp 147/56 (92) 15:35:53 Signed By Yeni Whitney MD On 07/06/2025 16:09:51 Yeni Whitney MD
--- NOTE | 2025-07-06 16:22 | ECHOCS_ITS ---
Reason For Study Reason For Study: CAD/ASHD Procedure This was a 2D Doppler, Color Flow transthoracic echocardiogram. The study was technically difficult. Contrast injection was performed. Exam performed portable in patient room. Left Ventricle Normal LV size. Normal left ventricular thickness. Mid to distal inferior septal, anterior septal, anterior and apical wall segments severely hypokinetic to akinetic. Estimated LVEF 35%. Stage I diastolic dysfunction. Right Ventricle Normal right ventricle. Atria The left and right atria are normal. Mitral Valve Trivial mitral valve insufficiency. Tricuspid Valve Mild tricuspid valve insufficiency. Normal pulmonary artery pressure. Aortic Valve Mildly calcified aortic valve. Mild aortic valve stenosis. Aortic valve area 1.5 cm??. Moderate eccentric aortic valve regurgitation. Pulmonic Valve Mild (1+) pulmonic valve insufficiency. Great Vessels Normal sized aortic root. Pericardium/Pleural No pericardial effusion. Medication Diluted definity 2ml given slow IV push to enhance endocardial definition. MMode/2D Measurements & Calculations LVIDd: 4.9 cm IVSd: 0.75 cm LVOT diam: 1.8 cm LVIDs: 3.4 cm LVPWd: 0.77 cm RVDd: 3.3 cm FS: 29.9 % LVOT area: 2.6 cm2 Ao root diam: 3.5 cm asc Aorta Diam: 3.5 cm LAV(MOD- bp): 43.4 ml LAV(MOD- bp) Indexed: 23.1 ml/m2 LAV(MOD- sp2): 36.9 ml LAV(MOD- sp4): 44.0 ml SV(MOD-sp4): 29.5 ml SV(sp4- el): 29.7 ml LVAd ap4: 36.1 cm2 LVLd ap4: 8.2 cm SI(MOD-sp4): 15.7 ml/m2 EDV(MOD-sp4): 129.7 ml EDV(sp4-el): 135.9 ml LVAs ap4: 30.0 cm2 LVLs ap4: 7.2 cm ESV(MOD-sp4): 100.2 ml ESV(sp4-el): 106.2 ml EF(MOD-sp4): 22.8 % EF(sp4-el): 21.9 % LA A4 area: 17.4 cm2 LA dimension(2D): 3.9 cm RA A4 area: 12.3 cm2 TAPSE: 2.0 cm Time Measurements MV dec time: 0.17 sec Doppler Measurements & Calculations MV E max perry: 76.2 cm/sec Lat Peak E' Perry: 9.4 cm/sec Med Peak E' Perry: 7.2 cm/sec MV A max perry: 59.5 cm/sec E/E' lat: 8.1 E/E' med: 10.5 MV E/A: 1.3 MV V2 max: 72.3 cm/sec MV P1/2t max perry: 73.0 cm/sec Ao V2 max: 215.2 cm/sec MV max P.1 mmHg MV P1/2t: 59.4 msec Ao max P.5 mmHg MV V2 mean: 38.0 cm/sec MV dec slope: 360.1 cm/sec2 Ao V2 mean: 134.2 cm/sec MV mean P.68 mmHg MVA(P1/2t): 3.7 cm2 Ao mean P.6 mmHg MV V2 VTI: 26.8 cm Ao V2 VTI: 45.1 cm MVA(VTI): 2.5 cm2 AV (velocity ratio): 0.57 ANGIE(I,D): 1.5 cm2 ANGIE(V,D): 1.3 cm2 AI max perry: 409.0 cm/sec LV V1 max: 111.3 cm/sec SV(LVOT): 65.9 ml AI max P.9 mmHg LV V1 max P.0 mmHg LV V1 mean P.6 mmHg AI dec slope: 270.2 cm/sec2 LV V1 mean: 75.1 cm/sec AI P1/2t: 443.2 msec LV V1 VTI: 25.7 cm PA V2 max: 103.3 cm/sec TR max perry: 222.9 cm/sec TR max P.3 mmHg ECHO/Echo Complete W/ Contrast Interpretation Summary Mid to distal inferior septal, anterior septal, anterior and apical wall segmen ts severely hypokinetic to akinetic. Estimated LVEF 35%. Stage I diastolic dysfunction. Mild tricuspid valve insufficiency. Mildly calcified aortic valve. Mild aortic valve stenosis. Aortic valve area 1. 5 cm??. Moderate eccentric aortic valve regurgitation. Mild (1+) pulmonic valve insufficiency. Ordering Physician: Maren Castro Performed By: Alvino Gibson RCS
--- NOTE | 2025-07-06 16:22 | PCM.HP.STD ---
HPI - General General Date of Admission: 07/06/25 Date of Service: 07/06/25 Chief Complaint: Chest pain HPI Narrative SHOBHA JOAQUIN, is a 84-year-old male history of depression, alcohol use, carotid stenosis, wet AMD, and hypertension presented to [facility] ED 07/06/2025 with chest pain since yesterday that was left-sided and did not radiate. [facility], reported history of hypertension. Noted chest pain worse when laying on left side patient did have some cough and congestion last week but no shortness of breath noted. In the ED patient afebrile, heart rate of 83 and blood pressure 136/35, respiratory rate 18 and pulse ox 93% on room air. CBC with white blood cell count 15.1 and hemoglobin of 14, platelet count 475. BMP demonstrated BUN of 20 with a creatinine of 1.30. Patient did not have chest pain but EKG showed a Brugada pattern and sinus arrhythmia with initial troponin of 2059, patient given aspirin and heparin drip and box car loader contacted who took patient to [facility]. Patient with LAD, diagonal, and RCA stenosis with heavily calcified vessels and LV dysfunction. Is recommended patient be transferred to tertiary facility. Patient has [facility] so they will be contacted for transfer. Hospitalist contacted for post [facility] admission. Patient evaluated at bedside post cath. Patient sometimes will have chest pain if he takes a deep breath on the left side but none at rest, has shortness of breath but it is chronic with no acute changes, no nausea, no swelling in the legs . Does note the last week he had some cough and congestion and URI-like symptoms but that is virtually [facility] History Depression Alcohol abuse Home Medications ?Medication ?Instructions ?Recorded ?Last Taken ?Type trazodone 100 mg tablet 50 mg PO QHS insomnia 06/29/21 Unknown History aspirin 81 mg capsule 81 mg PO DAILY blood thinner 07/06/25 Unknown History pregabalin 50 mg capsule (Lyrica) 50 mg PO BID neuropathy 07/06/25 Unknown History Allergy/AdvReac Type Severity Reaction Status Date / Time No Known Allergies Allergy Verified 07/06/25 12:49 Social History Smoking Status: Former smoker ROS ROS Narrative General: Denies fever/chills HENT: Denies headache, denies stuffy nose, denies sore throat EYES: Denies changes in vision Resp: No productive cough, chronic shortness of breath Cardiac: Sometimes chest pain with inspiration on left side but not at rest at present GI: Denies abdominal pain, denies changes in bowel, denies nausea/vomiting : Denies changes in urination Extremity: Denies swelling MSK: D generalized weakness Neuro: Chronic burning in lower extremities Heme: Denies any bleeding or bruising Skin: Denies rashes Psychiatric: No complaints voiced Vital Signs Vital Signs Vital Signs: 07/06/25 12:49 07/06/25 12:53 07/06/25 13:49 Temperature 98 F Temperature Source Oral Pulse Rate 98 78 Respiratory Rate 18 16 Blood Pressure 136/62 H 127/58 H Blood Pressure Mean 86 81 Pulse Ox 92 90 90 Oxygen Delivery Method Room Air Room Air Room Air 07/06/25 14:00 07/06/25 14:30 Temperature 97.4 F L Temperature Source Pulse Rate 94 83 Respiratory Rate 16 Blood Pressure 126/63 H 151/70 H Blood Pressure Mean 84 97 Pulse Ox 94 97 Oxygen Delivery Method Weight Weight: 67.132 kg Body Mass Index (BMI) 19.5 Physical Exam Narrative General: Alert, oriented, no apparent distress HEENT: Atraumatic, normocephalic Eyes: Anicteric, normal conjunctiva, extraocular movements grossly intact Neck: Supple Respiratory: Clear to auscultation bilaterally, normal respiratory effort Cardiovascular: Regular rate and rhythm GI: Soft, nontender, nondistended Extremities: No edema Musculoskeletal: Moving all extremities Neuro: No overt focal neurological deficits, is tremulous Skin: No rashes appreciated Psych: Cooperative Results Lab / Micro Data 07/06/25 13:02 07/06/25 13:02 Labs: Laboratory Results - last 24 hr 07/06/25 13:02: WBC 15.1 H, RBC 4.80, Hgb 14.0, Hct 42.5, MCV 88.5, MCH 29.2, MCHC 32.9, RDW Std Deviation 41.8, RDW Coeff of Lauren 13.0, Plt Count 475 H, MPV 10.3, Immature Gran % (Auto) 0.400, Neut % (Auto) 74.5 H, Lymph % (Auto) 14.7 L, [place] % (Auto) 9.6, Eos % (Auto) 0.5, Baso % (Auto) 0.3, Absolute Neuts (auto) 11.2 H, Absolute Lymphs (auto) 2.22, Nucleated RBC % 0, PT 13.8, INR 1.0, APTT 31.4, Sodium 144, Potassium 3.9, Chloride 107, Carbon Dioxide 23.7, Anion Gap 13, BUN 20 H, Creatinine 1.30 H, Estim Creat Clear Calc 41.60 L, Est GFR (MDRD) Non-Af 55 L, BUN/Creatinine Ratio 15.0, Glucose 113 H, Calcium 8.9, Troponin T High Sens 2059 H* Imaging Radiology Impression Chest X-Ray 07/06/25 13:20 IMPRESSION: No acute cardiopulmonary process. [id number] Assessment & Plan Assessment/Plan (1) Non-STEMI (non-ST elevated myocardial infarction): (2) CAD (coronary artery disease): (3) Carotid stenosis: PLAN: Plan #NSTEMI type I with diffuse coronary artery disease - Patient with EKG changes - Initial troponin 2059 - Patient started on heparin drip, given aspirin taken to [facility] -Coronary angiography revealed LAD, diagonal, and RCA stenosis with heavily calcified vessels and LV dysfunction -Transfer to tertiary facility recommended, patient has been insurance so attempt will be made to transfer patient to [place] -Was advised to keep patient on aspirin, statin, low-dose beta-brijesh in the meantime and resume heparin 4 hours after right radial hemostasis -Given concerns for LV dysfunction will monitor daily weights and I's and O's -Will order echocardiogram # History of carotid stenosis - Patient to have his fourth surgery on his left carotid, future plan for stent -Continue aspirin, statin started #Hypertension -Patient started on low-dose beta-brijesh -Add on low-dose LOUISA as blood pressure tolerates # History of depression - Previously psychiatrically hospitalized from our ED after an attempted overdose on trazodone - Denies SI - Family at bedside thinks he is depressed but he reports that he is not depressed at all and was actually taken off of his antidepressant and that he thinks the good Lord every day # History of alcohol use disorder - Denies any alcohol, drug, tobacco use # Peripheral neuropathy - Chronic burning in lower extremities - Continue home Lyrica #DVT ppx: Heparin subcu Maren Castro MD Charges/Coding Visit Charges Inpatient E&M: 66971 Init Hosp L2
--- NOTE | 2025-07-06 17:06 | CASEMGMT ---
MACHELLE BLOOM updated by hospitalist that patient will need transferred to tertiary facility and has [facility]. MACHELLE BLOOM called registration and verified that patient has [facility] only. MACHELLE BLOOM in to patient's room to update about transfer and [facility] benefits. Patient states he prefers to transfer to [facility]. Patient had no further questions or conerns. MACHELLE BLOOM [facility] and spoke with Lo[facility]. Lois took patient's information and requested clinicals be faxed to [phone]. MACHELLE BLOOM updated hospitalist and clinical information faxed to [facility], awaiting acceptance. CM will continue to follow this patient and assist with [facility] transfer.
[2025-07-06 17:13] LABS: Troponin T High Sens 2 HR 2037 ng/L (<=22)
[2025-07-06 18:20] LABS: Troponin T High Sens 4 HR 2001 ng/L (<=22)
[2025-07-06] MEDS: MELATONIN 10 MG TABLET PO (22:50)
--- OUTSIDE RECORDS SUMMARY | 2025-07-06 22:55 | XMS RPT_ITS | CCD ---
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 -[facility] Work Phone: Procedures Date Procedure Procedure Detail Performing Clinician Start: 07-06-2025 Plain chest X-ray Dr. Malik James MD Start: 07-06-[address] Lashay James MD Plan of Treatment Date Care Activity Detail Author Start: 07-07-2025 [facility] Start: 07-06-2025 Notification of physician [facility] Start: 07-06-2025 Patient education [facility] Start: 07-06-2025 Provision of activity privileges [facility] Start: 07-06-2025 Pulse taking [facility] Start: 07-06-2025 Taking patient vital signs [facility] Start: 07-06-2025 Wound care [facility] Start: 07-06-2025 [facility] Start: 07-06-2025 End: 07-06-2025 Admission procedure [facility] Start: 07-06-2025 [facility] Start: 07-06-2025 End: 07-06-2025 [facility] Erythrocyte mean cor puscular volume determination [facility] Hematocrit [Volume F raction] of Blood [facility] Hemoglobin [Mass/volume] in Blood [facility] Leukocytes [#/volume] in Blood [facility] Mean corpuscular hem oglobin concentration determination [facility] Mean corpuscular hem oglobin determination [facility] Neutrophil count [facility] Neutrophil percent d ifferential count [facility] Platelets [#/volume] in Blood [facility] Red blood cell count [facility] Red cell distributio n width determination [facility] Troponin T.cardiac [ Mass/volume] in Serum or Plasma by High sensitivity method [facility] Troponin T.cardiac [ Mass/volume] in Serum or Plasma by High sensitivity method [facility] Payers Date Payer Category Payer Policy ID Self-pay [id number] Social History Date Type Detail Facility Start: 07-06-[facility]25 [facility] Start: 08-23-2020 Alcohol Alcohol [facility] Start: 08-23-2020 Drugs Drugs [facility] Start: 08-23-2020 Lives Lives [facility] Start: 1940 Sex Assigned At Male [facility] Mental Status Date Assessment Result Facility 07-06-2025 Cognitive function Voice/Name [facility] Work Phone: Consult note 07-06-2025 Note Date & Type Note Facility 07-06-2025 Consult note [facility] Discharge summary 07-06-2025 Note Date & Type Note Facility 07-06-2025 Discharge summary [facility] Discharge summary 07-06-2025 Note Date & Type Note Facility 07-06-2025 Discharge summary Note Date/Time July 06, 2025 3:14pm [facility] Medical Records Department [address] [place] [address] Emergency Department Summary 07/06/25 MR#: [id number] Acct: [id number] Name: SHOBHA JOAQUIN Rep #:[id number] : 1940 84 From: Lashay James MD [facility] Location: [facility] History of Present Illness Chief Complaint: Chest Pain Narrative Narrative: Patient is an 84-year-old male presenting to the emergency department for chest pain since yesterday. Patient reports that it is left-sided. Does not radiate to his back, jaw or arm. Reports that he follows with the [place]. Has a history ofhypertension. Denies any family history of sudden cardiac , recent syncopal events or history of arrhythmias. States that the chest pain hurts more when he lays on his left side. He denies any history of blood clots. Reports some cough and congestion last week. He denies any cardiac history. When I evaluated the patient, he did not have chest pain. PFSH PFS Medical History Depression Alcohol abuse Home Medications ?Medication ?Instructions ?Recorded ?Last Taken ?Type trazodone 100 mg tablet 100 mg PO QHS 06/29/21 Unkno wn History Allergy/AdvReac Type Severity Reaction Status Date / Time No Known Allergies Allergy Verified 07/06/25 12:49 Social History Smoking Status: Former smoker ROS ROS ED ROS Narrative See HPI EXAM Physical Exam Narrative Exam Narrative: Vital signs: Reviewed General: Alert and oriented. No acute distress HEENT: Head is normocephalic and atraumatic, sinuses nontender, pupils equal round and reactive. Nares are patent. Oropharynx and throat exams normal. Neck: Supple without lymphadenopathy nontender Cardiovascular: Regular rate and rhythm, no murmurs. No rubs or gallops. Normal S1 and S2. Normal and equal pulses throughout. Chest: Chest wall is atraumatic. There is no reproducible tenderness to palpation. Respiratory: Clear to auscultation bilaterally. No wheezes, rales, rhonchi Abdominal: Soft and nontender. Normal bowel sounds. No guarding or rebound. Nonsurgical abdomen Extremities: No tenderness. No bruising. Normal range of motion. Normal sensation. Skin: No rash or redness. Neurological: Cranial nerves II through XII are grossly intact. Normal strengthand sensation. Normal cerebellar function The rest of the physical exam is unremarkable Const Vital Signs: 07/06/25 12:49 07/06/25 12:53 07/06/25 13:49 Temperature 98 F Temperature Source Oral Pulse Rate 98 78 Respiratory Rate 18 16 Blood Pressure 136/62 H 127/58 H Blood Pressure Mean 86 81 Pulse Ox 92 90 90 Oxygen Delivery Method Room Air Room Air Room Air 07/06/25 14:00 07/06/25 14:30 Temperature 97.4 F L Temperature Source Pulse Rate 94 83 Respiratory Rate 16 Blood Pressure 126/63 H 151/70 H Blood Pressure Mean 84 97 Pulse Ox 94 97 Oxygen Delivery Method MDM MDM MDM Narrative Medical decision making narrative: Patient is a 84-year-old male presenting to the emergency department for chest pain. Patient was seen and examined. Vitals are stable. Patient resting bed comfortably no acute distress. EKG shows sinus rhythm with a sinus arrhythmia. There is some mild ST elevationin V2 and V3 with coved ST morphology concerning for Brugada syndrome. Patient is pain free at time of my evaluation. Initial troponin of 2060. 324 mg chewableaspirin and heparin drip started. I did speak to transcriptionist telecommunication engineer, Dr. De La Vega, who recommended speaking to transcriptionist beveling machine operator, Dr. Whitney. He will be taking the patient to he union laborer due to concern for NSTEMI with brugada EKG findings. Updated patient and at bedside of the findings and the plan. I also did speak with the hospitalist, Dr. Castro to update her on the patient for when he is out of the union laborer for admission. Labs were reviewed after discussion with telecommunication engineer. CBC with mild leukocytosis of 15.1. Normal hemoglobin. BMP with a very mild KERMIT, otherwise no significant abnormalities on BMP. Chest x-ray with no acute cardiopulmonary process. Clinical impression NSTEMI Brugada Lab Data Attestation: I reviewed the patient's lab results. Labs: Laboratory Results - last 24 hr 07/06/25 13:02 WBC 15.1 H RBC 4.80 Hgb 14.0 Hct 42.5 MCV 88.5 MCH 29.2 MCHC 32.9 RDW Std Deviation 41.8 RDW Coeff of Lauren 13.0 Plt Count 475 H MPV 10.3 Immature Gran % (Auto) 0.400 Neut % (Auto) 74.5 H Lymph % (Auto) 14.7 L [place] % (Auto) 9.6 Eos % (Auto) 0.5 Baso % (Auto) 0.3 Absolute Neuts (auto) 11.2 H Absolute Lymphs (auto) 2.22 Nucleated RBC % 0 PT 13.8 INR 1.0 APTT 31.4 Sodium 144 Potassium 3.9 Chloride 107 Carbon Dioxide 23.7 Anion Gap 13 BUN 20 H Creatinine 1.30 H Estim Creat Clear Calc 41.60 L Est GFR (MDRD) Non-Af 55 L BUN/Creatinine Ratio 15.0 Glucose 113 H Calcium 8.9 Troponin T High Sens 2060 H* Radiography Diagnostic Testing: Clinical Impression(s) from Imaging Studies Chest X-Ray 07/06/25 13:20 IMPRESSION: No acute cardiopulmonary process. Reading [id number] Discharge Plan Triage Chief Complaint: Chest Pain ED Provider: Lashay James Dx/Rx/DC Orders Primary Care Provider: [facility] What to do if you have Problems For any increased pain, shortness of breath, bleeding, nausea or vomiting, chestpain, or any unexpected problems, contact your Primary Care Provider. Call [facility] ([phone]) or report to the closest Emergency Room. Call 911 if necessary. 07/06/25 1514 <Electronically signed by Lashay James MD> Cosigner Signature (if applicable): CC: [facility] ~ Signed [facility] Work Phone: Radiology Diagnostic study note 07-06-2025 Note Date & Type Note Facility 07-06-2025 Radiology Diagnostic study note [facility] Imaging Services [address] [address] [id number] Chest 1 View (Portable) MR#: [id number] Acct: [id number] Name: SHOBHA JOAQUIN Rep #: [id number] : 1940 M 84 From: Meme Shipley MD PCP: [facility] Status: REG ER Study:Chest 1 View (Portable) Date of Exam: 07/06/25 Exam# [id number] Ordering Dr: Garrett James MD PROCEDURE: CHEST 1 VIEW (PORTABLE) 07/06/2025 REASON FOR EXAM: CHEST PAIN TECHNIQUE: Frontal view of the chest. COMPARISON: August 23, 2020 FINDINGS: Hardware: Ursina is seen overlying the patient's left chest. Heart: Normal. The aorta is atherosclerotic. Lungs: Clear Bones: Minimal degenerative change about the shoulders. RAD/Chest 1 View (Portable) IMPRESSION: No acute cardiopulmonary process. Reading Location: [id number] CC: Dr. Lashay James MD; [facility] ~ Nurse Obgyn: Signed [facility] Consult note Note Date & Type Note Facility Consult note Note Date/Time July 06, 2025 4:00pm [facility] Medical Records Department [address] [place] [address] Consultation - Cardiology 07/06/25 1556 MR#: [id number] Acct: [id number] Name: SHOBHA JOAQUIN Rep #:[id number] : 1940 84 From: Delgado duran MD PCP: [facility] Status:REG [facility] Location: [facility] Assessment & Plan Assessment/Plan (1) Non-STEMI (non-ST elevated myocardial infarction): PLAN: Coronary angiography reveals LAD, diagonal and RCA stenoses. His vessels are heavily calcified. He does have LV dysfunction as well. He will be reasonable to get a CT surgery opinion for heart team approach for revascularization. Patient will be better served by transfer to a tertiary facility for this. At this time, keep the patient on aspirin, statin, low-dose beta-brijesh. He can be resumed on heparin 4 hours after right radial hemostasis. If his blood pressure can tolerate, he can be started on low-dose LOUISA inhibitor as well. He does have CKD and his creatinine will need to be monitored closely. HPI Consult Data Date of Consult: 07/06/25 HPI Narrative Reason for Consultation: Chest pain, non-STEMI HPI Narrative: SHOBHA JOAQUIN, is a 84 M who presents with chest pain that has been going on sincelast night. In the emergency room EKG showed EKG changes suspicious for LAD territory ischemia. Patient's troponin was elevated. His chest pain had resolved. However due to patient's non-STEMI patient was brought to the [facility] after discussing risks and benefits. He underwent coronary angiography which revealed significant stenosis in the LAD, diagonal 1, RCA. His vessels are heavily calcified. His EF is around 35% with hypokinesis of the mid and distal anterior wall, apex. [facility] Medical History Depression Alcohol abuse Home Medications ?Medication ?Instructions ?Recorded ?Last Taken ?Type trazodone 100 mg tablet 100 mg PO QHS 06/29/21 Unkno wn History Allergy/AdvReac Type Severity Reaction Status Date / Time No Known Allergies Allergy Verified 07/06/25 12:49 Social History Smoking Status: Former smoker Physical Exam Const alert and oriented x3 HEENT normocephalic Eyes no scleral icterus Resp normal respiratory effort Charges/Coding Visit Charges Inpatient E&M: 23135 Init Hosp L1 Objective Data Vital Signs: Vital Signs Temp Pulse Resp BP Pulse Ox O2 Del Method 97.4 F L 83 16 151/70 H 97 Room Air 07/06/25 14:30 07/06/25 14:30 07/06/25 14:30 07/06/25 14:30 07/06/25 14:30 07/06/25 13:49 Oxygen Delivery Method Room Air Weight: 148 lb Body Mass Index (BMI) 19.5 Lab / Micro Data 07/06/25 13:02 07/06/25 13:02 Labs: Laboratory Results - last 24 hr 07/06/25 13:02: WBC 15.1 H, RBC 4.80, Hgb 14.0, Hct 42.5, MCV 88.5, MCH 29.2, MCHC 32.9, RDW Std Deviation 41.8, RDW Coeff of Lauren 13.0, Plt Count 475 H, MPV 10.3, Immature Gran % (Auto) 0.400, Neut % (Auto) 74.5 H, Lymph % (Auto) 14.7 L,[place] % (Auto) 9.6, Eos % (Auto) 0.5, Baso % (Auto) 0.3, Absolute Neuts (auto) 11.2 H, Absolute Lymphs (auto) 2.22, Nucleated RBC % 0, PT 13.8, INR 1.0, APTT 31.4, Sodium 144, Potassium 3.9, Chloride 107, Carbon Dioxide 23.7, Anion Gap 13, BUN 20 H, Creatinine 1.30 H, Estim Creat Clear Calc 41.60 L, Est GFR (MDRD) Non-Af 55 L, BUN/Creatinine Ratio 15.0, Glucose 113 H, Calcium 8.9, Troponin T High Sens 2060 H* Cardiology Labs/Tests 07/06/25 13:02: WBC 15.1 H, RBC 4.80, Hgb 14.0, Hct 42.5, MCV 88.5, MCH 29.2, MCHC 32.9, Plt Count 475 H, MPV 10.3, Immature Gran % (Auto) 0.400, Neut % (Auto) 74.5 H, Lymph % (Auto) 14.7 L, [place] % (Auto) 9.6, Eos % (Auto) 0.5, Baso % (Auto) 0.3, Absolute Neuts (auto) 11.2 H, Nucleated RBC % 0, PT 13.8, INR 1.0,APTT 31.4, Sodium 144, Potassium 3.9, Chloride 107, Carbon Dioxide 23.7, Anion Gap 13, BUN 20 H, Creatinine 1.30 H, Est GFR (MDRD) Non-Af 55 L, BUN/Creatinine Ratio 15.0, Glucose 113 H, Calcium 8.9 Rhythm: EKG: ECHO: Stress Test: Cardiac Cath: PCI: CT Surgery: Holter monitor: EPS: PPM: CXR: Chest CT Scan: Radiography Diagnostic Testing: Radiology Impression Chest X-Ray 07/06/25 13:20 IMPRESSION: No acute cardiopulmonary process. Reading Location[id number] Risk Score for UA/STEMI Assesmment (YES = 1) Risk Stratification Applicable: No 07/06/25 1600 <Electronically signed by Delgado Whitney MD> Cosigner Signature (if applicable): CC: [facility]~ Signed [facility] Work Phone: Evaluation note Note Date & Type Note Facility Evaluation note Diagnosis Onset Date Resolution Non-STEMI (non-ST elevated myocardial infarction) acute July 06, 3:30pm [facility] Work Phone: Reason for referral (narrative) Note Date & Type Note Facility Reason for referral (narrative) No reason for referral information available [facility] Work Phone: Summary Purpose Family History No Family History Records Found Advance Directives Advance Directive Response Recorded Date/ Time Do you have a Healthcare Power of Construction Tech? No July 06, 2025 1:56pm Chief Complaint and Reason for Visit Chief Complaint Admit Date NONSTEMI July 06, 2025 3:30pm NONSTEMI July 06, 2025 3:56pm Reason for Visit Admit Date Non-STEMI (non-ST elevated myocardial in farction) July 06, 2025 3:30pm Additional Source Comments (unrecognized sect ion and content) No Status Records Found INFORMATION SOURCE (unrecogn ized section and content) DATE CREATED AUTHOR 12/19/2021 [facility] Care Teams (unrecognized sec tion and content) Team Status: Active Member Role/Relationship Status Dates [facility] Primary Care Provider Active Team Status: Active Member Role/Relationship Status Dates Dr. Lashay James MD Emergency Provider Active S tart: July 06, 2025 [facility] Primary [facility] Provider Active Start: July 06, 2025 Dr. Maren Castro MD Admit Provider Active Star t: July 06, 2025 Dr. Maren Castro MD Attending Provider Active Start: July 06, 2025 Team Status: Active Member Role/Relationship Status Dates Dr. Lashay James MD Emergency Provider Active S tart: July 06, 2025 [facility] Primary Care Provider Active Start: July 06, 2025 Dr. Maren Castro MD Admit Provider Active Star t: July 06, 2025 Dr. Maren Castro MD Other Provider Active Star t: July 06, 2025 Dr. Delgado Whitney MD Attending Provider Activ e Start: July 06, 2025 Goals (unrecognized section and content) Goals may be documented in a n alternate section FOR RECORDS PERTAINING TO PATIENTS WHO ARE OR HAVE BEEN ENROLLED IN A CHEMICAL DEPENDENCY/SUBSTANCEABUSE PROGRAM, SOME INFORMATION MAY BE OMITTED. This clinical summary was aggregated from multiple sources. Caution should be exercised in using it in the provision of clinical care. This summary normalizes information from multiple sources, and as a consequence, information in this document may materially change the coding, format and clinical context of patient data. In addition, data may be omitted in some cases. CLINICAL DECISIONS SHOULD BE BASED ON THE PRIMARY CLINICAL RECORDS. [facility] [employer] [facility]. provides no warranty or guarantee of the accuracy or completeness of information in this document.
--- OUTSIDE RECORDS SUMMARY | 2025-07-06 23:17 | XMS RPT_ITS | CCD ---
Author Organization [facility] Care Team Providers Care Cyber Software Engineer Name Role Phone Jacob CARPENTER, Dr. Metz Emergency Provider [place] Primary Care Provider Samuel Castro MD, Dr. Engel Admit Provider Matthew CARPENTER, Dr. Engel Attending Provider [phone] [place], [place] Primary Care Provider Samuel Castro MD, Dr. Engel Other Provider [phone] Devonte CARPENTER, Dr. Natarajan Attending Provider [...] Auto (Unsp spec) [#/Vol] 2.22 10*3/uL 0.83-4.[address] [facility] Absolute neutrophil countOrd ered By: ED PROVIDER on 07-06-2025 Neutrophils (Bld) [#/Vol] 11.2 10*3/uL High 2.0-7.[address] [facility] Activated partial thrombopla stin time (aPTT) in platelet poor plasma by coagulation aOrdered By: Lashay James on 07-06-2025 aPTT Coag (PPP) [Time] 31.4 s 24.1-36.2 [facility] Anion gap in Serum or Plasma Ordered By: Lashay James on 07-06-2025 Anion gap [Moles/Vol] 13 mmol/L 5-15 [facility] Automated lymphocyte count a s percentage of total leukocytesOrdered By: ED PROVIDER on 07-06-2025 Lymphocytes/100 WBC Auto (Unsp spec) 14.7 % Low 19-[address] [facility] BUN/creatinine ratioOrdered By: Lashay James on 07-06-2025 Urea nitrogen/Creatinine [Mass ratio] 15.0 mg/mg 10-[address] [facility] Basophil percentageOrdered B y: ED PROVIDER on 07-06-2025 Basophils/100 WBC (Bld) 0.3 % 0-1 [facility] Carbon dioxide, total [Moles /volume] in Central venous bloodOrdered By: Lashay James on 07-06-2025 CO2 [Moles/Vol] 23.7 mmol/L 21.0-32.[address] [facility] Chloride assayOrdered By: Garrett James on 07-06-2025 Chloride [Moles/Vol] 107 mmol/L 98-108 [facility] Eosinophil percentageOrdered By: ED PROVIDER on 07-06-2025 Eosinophils/100 WBC (Bld) 0.5 % 0-[address] [facility] Erythrocyte distribution wid th ratioOrdered By: ED PROVIDER on 07-06-2025 Erythrocyte distribution width (RBC) [Ratio] 13.0 % 11.6-14.[address] [facility] Erythrocyte distribution wid th standard deviationOrdered By: ED PROVIDER on 07-06-2025 Erythrocyte distribution width (RBC) [Ratio] 41.8 fl 35.1-43.[address] [facility] Glomerular filtration rate ( GFR) estimation/1.73 sq m using serum, plasma, or whole bOrdered By: Lashay James on 07-06-2025 GFR/1.73 sq M.predicted among non-blacks MDRD (S/P/Bld) [Vol rate/Area] 55 mL/min/{1.73_m2} Low >60 [facility] Comment on above: mL/min/1.73m2 CKD-EP I Creatinine Equation (2020) Hematocrit Auto (Bld) [Volum e fraction]Ordered By: ED PROVIDER on 07-06-2025 Hematocrit (Bld) [Volume fraction] 42.5 % 40-[address] [facility] Hemoglobin measurementOrdere d By: ED PROVIDER on 07-06-2025 Hemoglobin (Bld) [Mass/Vol] 14.0 g/dL 13.0-16.[address] [facility] Immature granulocytes/100 WB C Auto (Bld)Ordered By: ED PROVIDER on 07-06-2025 Immature granulocytes/100 WBC (Bld) 0.400 % 0.0-0.[address] [facility] Comment on above: IG% - Immature Granu locytes (promyelocytes, myelocytes and metamyelocytes) > 1% indicates that a LEFT SHIFT is Present. International normalized rat io (INR) calculationOrdered By: ED PROVIDER on 07-06-2025 INR Coag (Bld) [Relative time] 1.0 {INR} [facility] MCV (mean corpuscular volume ) determinationOrdered By: ED PROVIDER on 07-06-2025 MCV (RBC) [Entitic vol] 88.5 fL 80-94 [facility] Mean corpuscular hemoglobin (MCH) determinationOrdered By: ED PROVIDER on 07-06-2025 MCH (RBC) [Entitic mass] 29.2 pg 27.0-32.[address] [facility] Mean corpuscular hemoglobin concentration (MCHC) determinationOrdered By: ED PROVIDER on 07-06-2025 MCHC (RBC) [Mass/Vol] 32.9 g/dL 32-36 [facility] Mean platelet volume determi nationOrdered By: ED PROVIDER on 07-06-2025 Platelet mean volume (Bld) [Entitic vol] 10.3 fL 6.2-12.[address] [facility] Monocyte percentageOrdered B y: ED PROVIDER on 07-06-2025 Monocytes/100 WBC (Bld) 9.6 % 0-10 [facility] Neutrophil percentageOrdered By: ED PROVIDER on 07-06-2025 Neutrophils/100 WBC (Bld) 74.5 % High 47-[address] [facility] Nucleated red blood cell per centageOrdered By: ED PROVIDER on 07-06-2025 Nucleated RBC/100 WBC (Bld) [Ratio] 0 % 0-[address] [facility] Platelet countOrdered By: ED PROVIDER on 07-06-2025 Platelets (Bld) [#/Vol] 475 10*3/uL High 150-[address] [facility] Potassium measurement (mass/ volume)Ordered By: Lashay James on 07-06-2025 Potassium (Unsp spec) [Mass/Vol] 3.9 mmol/L 3.3-5.[address] [facility] Prothrombin timeOrdered By: ED PROVIDER on 07-06-2025 PT Coag (PPP) [Time] 13.8 s 11.7-14.9 [facility] RBC Auto (Bld) [#/Vol]Ordere d By: ED PROVIDER on 07-06-2025 RBC (Bld) [#/Vol] 4.80 10*6/uL 4.6-6.2 [facility] Serum creatinine measurement (mass/volume)Ordered By: Lashay James on 07-06-2025 Creatinine [Mass/Vol] 1.30 mg/dL High 0.70-1.20 [facility] Serum glucose measurement (m ass/volume)Ordered By: Lashay James on 07-06-2025 Glucose [Mass/Vol] 113 mg/dL High 70-99 [facility] Serum or plasma calcium heladio urement (mass/volume)Ordered By: Lashay James on 07-06-2025 Calcium [Mass/Vol] 8.9 mg/dL 7.6-11.0 [facility] Serum or plasma urea nitroge n measurement (mass/volume)Ordered By: Lashay James on 07-06-2025 Urea nitrogen [Mass/Vol] 20 mg/dL High 4-[address] [facility] Sodium levelOrdered By: Trent James on 07-06-2025 Sodium [Moles/Vol] 144 mmol/L 133-145 [facility] Troponin T.cardiac [Mass/vol ume] in Serum or Plasma by High sensitivity methodOrdered By: Lashay James on 07-06-2025 Troponin T.cardiac High sensitivity method [Mass/Vol] 2060 ng/L High <[address] [facility] Comment on above: Critical Result(s) C alled at 1345: by: COSME JIMÉNEZ TO [facility]. Results read back by same. White blood cell (WBC) count Ordered By: ED PROVIDER on 07-06-2025 WBC (Bld) [#/Vol] 15.1 10*3/uL High 4.4-11.0 [facility] 12 Lead EKGon 06-29-2021 12 Lead EKG [facility] [address] [place] [address] 12 Lead EKG 06/29/21 1603 MR#: [id number] Acct: [id number] Name: SHOBHA JOAQUIN Rep #: [id number] : 1940 80 From: Nilton Beltrán MD [...] Abnormal ECG Confirmed by JEREL CARPENTER, NILTON ([id number]), acquisitions editor ALEXANDR STODDARD ([id number]) on 07/03/2021 10:36:50 AM Referred By: [email or web address] Confirmed By:NILTON BELTRÁN MD 07/03/21 1036 Date Nilton Beltrán MD CC: Dr. Iain Krishna, DO; No Primary Care Physician Signed Normal [facility] Acetaminophen (Tylenol) Anisa goddard 06-29-2021 Acetaminophen [Mass/Vol] ug/mL Low 10.0-30.[address] [facility] Comment on above: Performed By: #### L 501.8300, L501.8400 #### [facility] [address] [place], [address] Alcohol, Blood (Medical)-Ser umon 06-29-2021 SERUM ETOH < 3.[address] [facility] Comment on above: Result Comment: The serum:whole blood ethanol ratio is approximately 1.14 and varies slightly with hematocrit. Medical Alcohol reference interval and critical value in non-tolerant individuals; 50 - 100 Impairment 100 Intoxication 100 - 250 Severe Poisoning 250 - 400 Deep/possible fatal coma Performed By: #### L 500.2500, L100.0100, L505.5000, L501.9100 #### [facility] [address] [place], [address] Basic Metabolic Profile (BMP )on 06-29-2021 BUN/CRE 11.5 RATIO Normal 10-[address] [facility] Comment on above: Performed By: #### L 500.2500, L100.0100, L505.5000, L501.9100 #### [facility] [address] [place], [address] CA,Total 8.7 mg/dL Normal 8.5-10.[address] [facility] Comment on above: Performed By: #### L 500.2500, L100.0100, L505.5000, L501.9100 #### [facility] [address] [place], [address] Chloride [Moles/Vol] 104 mmol/L Normal 98-107 [facility] Comment on above: Performed By: #### L 500.2500, L100.0100, L505.5000, L501.9100 #### [facility] [address] [place], [address] CO2 [Moles/Vol] 24.0 mmol/L Normal 21.0-32.[address] [facility] Comment on above: Performed By: #### L 500.2500, L100.0100, L505.5000, L501.9100 #### [facility] [address] [place], [address] Creatinine [Mass/Vol] 1.22 mg/dL Normal 0.70-1.30 [facility] Comment on above: Result Comment: The validity of the calculated GFR GFRAA in patients over 70 years has not been determined. Clinical correlation is essential. Performed By: #### L 500.2500, L100.0100, L505.5000, L501.9100 #### [facility] [address] [place], [address] ECRCL 32.02 ml/min Normal [facility] Comment on above: Performed By: #### L 500.2500, L100.0100, L505.5000, L501.9100 #### [facility] [address] [place], [address] EST GFR - AA 74 mL/min Normal >[address] [facility] Comment on above: Result Comment: Afri can Iraqi GFR Calc Performed By: #### L 500.2500, L100.0100, L505.5000, L501.9100 #### [facility] [address] [place], [address] GAP 7 Normal 5-[address] [facility] Comment on above: Performed By: #### L 500.2500, L100.0100, L505.5000, L501.9100 #### [facility] [address] [place], [address] GFR/1.73 sq M.predicted among non-blacks MDRD (S/P/Bld) [Vol rate/Area] 61 mL/min/{1.73_m2} Normal >60 [facility] Comment on above: Result Comment: Non- GFR Calc Performed By: #### L 500.2500, L100.0100, L505.5000, L501.9100 #### [facility] [address] [place], [address] Glucose [Mass/Vol] 153 mg/dL High 74-106 [facility] Comment on above: Result Comment: Fast ing Glucose result greater than or equal to 126 mg/dL suggests DIABETES MELLITUS per A.D.A. criteria. Please note revised GLUCOSE reference range effective 2017. Performed By: #### L 500.2500, L100.0100, L505.5000, L501.9100 #### [facility] [address] [place], [address] Potassium [Moles/Vol] 3.8 mmol/L Normal 3.5-5.1 [facility] Comment on above: Performed By: #### L 500.2500, L100.0100, L505.5000, L501.9100 #### [facility] [address] [place], [address] Sodium [Moles/Vol] 135 mmol/L Low 136-145 [facility] Comment on above: Performed By: #### L 500.2500, L100.0100, L505.5000, L501.9100 #### [facility] [address] [place], [address] Urea nitrogen [Mass/Vol] 14 mg/dL Normal 7-[address] [facility] Comment on above: Performed By: #### L 500.2500, L100.0100, L505.5000, L501.9100 #### [facility] [address] [place], [address] CBC W/Diff, Automatedon 08-2 Absolute Lymph 0.96 X10 3/uL Normal 0.83-4.[address] [facility] Comment on above: Performed By: #### L 500.2500, L100.0100, L505.5000, L501.9100 #### [facility] [address] [place], [address] Absolute Neut 9.1 X10 3/uL High 2.0-7.[address] [facility] Comment on above: Performed By: #### L 500.2500, L100.0100, L505.5000, L501.9100 #### [facility] [address] [place], [address] Basophils/100 WBC (Bld) 0.4 % Normal 0-1 [facility] Comment on above: Performed By: #### L 500.2500, L100.0100, L505.5000, L501.9100 #### [facility] [address] [place], [address] Eosinophils/100 WBC (Bld) 0.1 % Normal 0-[address] [facility] Comment on above: Performed By: #### L 500.2500, L100.0100, L505.5000, L501.9100 #### [facility] [address] [place], [address] Erythrocyte distribution width (RBC) [Ratio] 13.3 % Normal 11.6-14.[address] [facility] Comment on above: Performed By: #### L 500.2500, L100.0100, L505.5000, L501.9100 #### [facility] [address] [place], [address] Hematocrit (Bld) [Volume fraction] 36.8 % Low 40-[address] [facility] Comment on above: Performed By: #### L 500.2500, L100.0100, L505.5000, L501.9100 #### [facility] [address] [place], [address] Hemoglobin (Bld) [Mass/Vol] 12.3 g/dL Low 13.0-16.[address] [facility] Comment on above: Performed By: #### L 500.2500, L100.0100, L505.5000, L501.9100 #### [facility] [address] [place], [address] IG% 0.300 Normal 0.0-0.[address] [facility] Comment on above: Result Comment: IG% - Immature Granulocytes (promyelocytes, myelocytes and metamyelocytes) > 1% indicates that a LEFT SHIFT is Present. Performed By: #### L 500.2500, L100.0100, L505.5000, L501.9100 #### [facility] [address] [place], [address] Lymphocytes/100 WBC (Bld) 8.9 % Low 19-[address] [facility] Comment on above: Performed By: #### L 500.2500, L100.0100, L505.5000, L501.9100 #### [facility] [address] [place], [address] MCH (RBC) [Entitic mass] 30.0 pg Normal 27.0-32.[address] [facility] Comment on above: Performed By: #### L 500.2500, L100.0100, L505.5000, L501.9100 #### [facility] [address] [place], [address] MCHC (RBC) [Mass/Vol] 33.4 g/dL Normal 32-36 [facility] Comment on above: Performed By: #### L 500.2500, L100.0100, L505.5000, L501.9100 #### [facility] [address] [place], [address] MCV (RBC) [Entitic vol] 89.8 fL Normal 80-94 [facility] Comment on above: Performed By: #### L 500.2500, L100.0100, L505.5000, L501.9100 #### [facility] [address] [place], [address] Monocytes/100 WBC (Bld) 5.8 % Normal 0-10 [facility] Comment on above: Performed By: #### L 500.2500, L100.0100, L505.5000, L501.9100 #### [facility] [address] [place], [address] Neutrophils/100 WBC (Bld) 84.5 % High 47-[address] [facility] Comment on above: Performed By: #### L 500.2500, L100.0100, L505.5000, L501.9100 #### [facility] [address] [place], [address] Nucleated RBC (Bld) [#/Vol] 0 10*3/uL Normal 0-[address] [facility] Comment on above: Performed By: #### L 500.2500, L100.0100, L505.5000, L501.9100 #### [facility] [address] [place], [address] Platelet mean volume (Bld) [Entitic vol] 10.6 fL Normal 6.2-12.[address] [facility] Comment on above: Performed By: #### L 500.2500, L100.0100, L505.5000, L501.9100 #### [facility] [address] [place], [address] Platelets (Bld) [#/Vol] 288 10*3/uL Normal 150-[address] [facility] Comment on above: Performed By: #### L 500.2500, L100.0100, L505.5000, L501.9100 #### [facility] [address] [place], [address] RBC (Bld) [#/Vol] 4.10 10*6/uL Low 4.6-6.2 [facility] Comment on above: Performed By: #### L 500.2500, L100.0100, L505.5000, L501.9100 #### [facility] [address] [place], [address] RDW SD 44.1 fl High 35.1-43.[address] [facility] Comment on above: Performed By: #### L 500.2500, L100.0100, L505.5000, L501.9100 #### [facility] [address] [place], [address] WBC (Bld) [#/Vol] 10.7 10*3/uL Normal 4.4-11.0 [facility] Comment on above: Performed By: #### L 500.2500, L100.0100, L505.5000, L501.9100 #### [facility] [address] [place], [place], [address] COVID 19 AG RAPID (RN COLLEC T)on [...] BinaxNow COVID19 Ag Card, lateral flow Normal [facility] Comment on above: Performed By: #### M 100.505 #### [facility] [address] [place], [place], [address] Emergency Department Summary on 06-29-[address] [facility] Medical Records Department [address] [place] [address] Emergency Department Summary 06/29/21 MR#: [id number] Acct: [id number] Name: SHOBHA JOAQUIN Rep #: [id number] : 1940 80 From: Iain Quinteros PCP: Care Physician,No Primary Status:DEP ER Location: ED HPI History of Present Illness Chief Complaint: Suicidal Informant: patient Narrative Narrative: Patient presents by private vehicle with depression symptoms. Patient eventually during discussion states sudden symptoms yesterday. He denies suicidal homicidal ideations. He states he is followed by [facility] he is on trazodone to help [...] Mental health work- up with clearance initiated. Racker Octave Board was present, came out discussed patient admitted [...] margaret rubio (more content not included)... Normal [facility] Salicylateon 06-29-2021 SALICYLATE 6.4 mg/dL Normal 2.8-20.[address] [facility] Comment on above: Performed By: #### L 501.8300, L501.8400 #### [facility] [address] [place], [address] Urine Drug Screen (VISTA)on 06-29-2021 AMPHETAMINES Negative Normal <1000 ng/mL [facility] Comment on above: Performed By: #### L 500.2500, L100.0100, L505.5000, L501.9100 #### [facility] [address] [facility] [address] BARBITIURATES Negative Normal < 200 ng/mL [facility] Comment on above: Performed By: #### L 500.2500, L100.0100, L505.5000, L501.9100 #### [facility] [address] [place], [address] BENZODIAZIPINE Positive Abnormal < 200 ng/mL [facility] Comment on above: Performed By: #### L 500.2500, L100.0100, L505.5000, L501.9100 #### [facility] [address] [place], [address] COCAINE Negative Normal < 300 ng/mL [facility] Comment on above: Performed By: #### L 500.2500, L100.0100, L505.5000, L501.9100 #### [facility] [address] [facility] [address] ECSTACY Positive Abnormal < 500 ng/mL [facility] Comment on above: Performed By: #### L 500.2500, L100.0100, L505.5000, L501.9100 #### [facility] [address] [facility] [address] METHADONE Negative Normal < 300 ng/mL [facility] Comment on above: Performed By: #### L 500.2500, L100.0100, L505.5000, L501.9100 #### [facility] [address] [place], [address] OPIATES Negative Normal < 300 ng/mL [facility] Comment on above: Performed By: #### L 500.2500, L100.0100, L505.5000, L501.9100 #### [facility] [address] [place], [address] PCP Negative Normal < 25 ng/mL [facility] Comment on above: Performed By: #### L 500.2500, L100.0100, L505.5000, L501.9100 #### [facility] [address] [place], [address] THC Negative Normal < 50 ng/mL [facility] Comment on above: Performed By: #### L 500.2500, L100.0100, L505.5000, L501.9100 #### [facility] [address] [place], [address] VISTA UDS PH [address] [facility] Comment on above: Performed By: #### L 500.2500, L100.0100, L505.5000, L501.9100 #### [facility] [address] [place], [address] Vital Signs Date Time Vital Sign Value Performing Clinician Faci lity 07-06-2025 14:30-0400 Body temperature 97.4 [degF] Dr. Lashay James MD [facility] 07-06-2025 14:30-0400 Diastolic blood pressure 70 mm[Hg] Dr. Lashay James MD [facility] 07-06-2025 14:30-0400 Heart rate 83 /min Dr. Lashay James MD [facility] 07-06-2025 14:30-0400 Respiratory rate 16 /min Dr. Lashay James MD [facility] 07-06-2025 14:30-0400 SaO2% (BldA) [Mass fraction] 97 % Dr. Lashay James MD [facility] 07-06-2025 14:30-0400 Systolic blood pressure 151 mm[Hg] Dr. Lashay James MD [facility] 07-06-2025 12:49-0400 Body height 185.[address] Lashay James MD [facility] 07-06-2025 12:49-0400 Body mass index (BMI) [Ratio] 19.5 kg/m2 Dr. Lashay James MD [facility] 07-06-2025 12:49-0400 Body weight 67.[address] Lashay James MD [facility] Encounters Encounter Date Encounter Type Care Provider Facility Start: 07-06-2025 Non-patient / Non-visit Dr. Tyesha Whitney MD -[facility] Start: 07-06-2025 Evaluation and management of inpatient Dr. Maren Castro MD -Progressive Care Unit Work Phone: Procedures Date Procedure Procedure Detail Performing Clinician Start: 07-06-2025 Plain chest X-ray Dr. Malik James MD Start: 07-06-[address] Lashay James MD Plan of Treatment Date Care Activity Detail Author Start: 07-07-2025 [facility] Start: 07-06-20[address] Notification of physician [facility] Start: 07-06-2025 Patient education [facility] Start: 07-06-2025 Provision of activity privileges [facility] Start: 07-06-2025 Pulse taking [facility] Start: 07-06-2025 Taking patient vital signs [facility] Start: 07-06-2025 Wound care [facility] Start: 07-06-2025 [facility] Start: 07-06-2025 End: 07-06-2025 Admission procedure [facility] Start: 07-06-2025 [facility] Start: 07-06-2025 End: 07-06-2025 [facility] Erythrocyte mean cor puscular volume determination [facility] Hematocrit [Volume F raction] of Blood [facility] Hemoglobin [Mass/volume] in Blood [facility] Leukocytes [#/volume] in Blood [facility] Mean corpuscular hem oglobin concentration determination [facility] Mean corpuscular hem oglobin determination [facility] Neutrophil count [facility] Neutrophil percent d ifferential count [facility] Platelets [#/volume] in Blood [facility] Red blood cell count [facility] Red cell distributio n width determination [facility] Troponin T.cardiac [ Mass/volume] in Serum or Plasma by High sensitivity method [facility] Troponin T.cardiac [ Mass/volume] in Serum or Plasma by High sensitivity method [facility] Payers Date Payer Category Payer Policy ID Self-pay [id number] Social History Date Type Detail Facility Start: 07-06-2025 [facility] Start: 08-23-2020 Alcohol Alcohol [facility] Start: 08-23-2020 Drugs Drugs [facility] Start: 08-23-2020 Lives Lives [facility] Start: 1940 Sex Assigned At Male [facility] Mental Status Date Assessment Result Facility 07-06-2025 Cognitive function Voice/Name [facility] Work Phone: Consult note 07-06-2025 Note Date & Type Note Facility 07-06-[address] [facility] Discharge summary 07-06-2025 Note Date & Type Note Facility 07-06-[address] [facility] Discharge summary 07-06-2025 Note Date & Type Note Facility 07-06-2025 Discharge summary Note Date/Time July 06, 2025 3:14pm [facility] Records Department [address] [place] [address] Emergency Department Summary 07/06/25 MR#: [id number] Acct: [id number] Name: SHOBHA JOAQUIN Rep #:[id number] : 1940 84 From: Lashay James MD [facility] Location: [facility] History of Present Illness Chief Complaint: Chest Pain Narrative Narrative: Patient is an 84-year-old male presenting to the emergency department for chest pain since yesterday. Patient reports that it is left-sided. Does not radiate to his back, jaw or arm. Reports that he follows with the OR. Has a history ofhypertension. Denies any family [...] heparin drip started. I did speak to verification lead register repairer, Dr. De La Vega, who recommended speaking to verification lead isolation washer, Dr. Whitney. He will be taking the patient to he pathology laboratory aides teacher due to concern for NSTEMI with brugada EKG findings. Updated patient and at bedside of the findings and the plan. I also did speak with the hospitalist, Dr. Castro to update her on the patient for when he is out of the pathology laboratory aides teacher for admission. Labs were reviewed after discussion with register repairer. CBC with mild leukocytosis of 15.1. Normal [...] 74.5 H Lymph % (Auto) 14.7 L [place] % (Auto) 9.6 Eos % (Auto) 0.5 [...] IMPRESSION: No acute cardiopulmonary process. Reading Location: [id number] Discharge Plan Triage Chief Complaint: Chest Pain ED Provider: Lashay James Dx/Rx/DC Orders Primary Care Provider: [facility],[place] What to do if you have Problems For any increased pain, shortness of breath, bleeding, nausea or vomiting, chestpain, or any unexpected problems, contact your Primary Care Provider. Call [facility] ([phone]) or report to the closest Emergency Room. Call 911 if necessary. 07/06/25 1514 <Electronically signed by Lashay James MD> Cosigner Signature (if applicable): CC: [facility] ~ Signed [facility] Work Phone: Radiology Diagnostic study note 07-06-2025 Note Date & Type Note Facility 07-06-2025 Radiology Diagnostic study note [facility] Imaging Services [address] [place] [address] [id number] Chest 1 View (Portable) MR#: [id number] Acct: [id number] Name: SHOBHA JOAQUIN Rep #: [id number] : 1940 M 84 From: Meme Shipley MD PCP: OR Hospital Status: REG ER Study:Chest 1 View (Portable) Date of Exam: 07/06/25 Exam# [id number] Ordering Dr: Garrett James MD PROCEDURE: CHEST 1 VIEW (PORTABLE) 07/06/2025 REASON FOR EXAM: CHEST PAIN TECHNIQUE: Frontal view of the chest. COMPARISON: August 23, 2020 FINDINGS: Hardware: [place] is seen overlying the patient's left chest. Heart: Normal. The aorta is atherosclerotic. Lungs: Clear Bones: Minimal degenerative change about the shoulders. RAD/Chest 1 View (Portable) IMPRESSION: No acute cardiopulmonary process. Reading Location: [id number] CC: Dr. Lashay James MD; [facility] ~ Survey Questionnaire Designer: Signed [facility] Consult note Note Date & Type Note Facility Consult note Note Date/Time July 06, 2025 4:00pm [facility] Medical Records Department [address] [place] [address] Consultation - Cardiology 07/06/25 1556 MR#: [id number] Acct: [id number] Name: SHOBHA JOAQUIN Rep #:[id number] : 1940 84 From: Delgado duran MD PCP: [facility] Status:REG [facility] Location: [facility] Assessment & Plan Assessment/Plan (1) [...] patient's non-STEMI patient was brought to the Etl Consultant after discussing risks and benefits. He underwent coronary angiography which revealed significant stenosis in the LAD, diagonal 1, RCA. His vessels are heavily calcified. His EF is around 35% with hypokinesis of the mid and distal anterior wall, apex. [facility] Medical History Depression Alcohol abuse Home [...] respiratory effort Charges/Coding Visit Charges Inpatient E&M: 63914 Init Hosp L1 Objective Data Vital Signs: [...] (Auto) 74.5 H, Lymph % (Auto) 14.7 L,[place] % (Auto) 9.6, Eos % (Auto) 0.5, [...] 74.5 H, Lymph % (Auto) 14.7 L, [place] % (Auto) 9.6, Eos % (Auto) 0.5, [...] IMPRESSION: No acute cardiopulmonary process. Reading Location: [id number] Risk Score for UA/STEMI Assesmment (YES = 1) Risk Stratification Applicable: No 07/06/25 1600 <Electronically signed by Delgado Whitney MD> Cosigner Signature (if applicable): CC: [facility]~ Signed [facility] Work Phone: Evaluation note Note Date & Type Note Facility Evaluation note Diagnosis Onset Date Resolution Non-STEMI (non-ST elevated myocardial infarction) acute July 06, 3:30pm [facility] Work Phone: Reason for referral (narrative) Note Date & Type Note Facility Reason for referral (narrative) No reason for referral information available [facility] Work Phone: Summary Purpose Family History No Family History Records Found Advance Directives Advance Directive Response Recorded Date/ Time Do you have a Healthcare Power of Test Lead? No July 06, 2025 1:56pm Chief Complaint and Reason for Visit Chief Complaint Admit Date NONSTEMI July 06, 2025 3:30pm NONSTEMI July 06, 2025 3:56pm Reason for Visit Admit Date Non-STEMI (non-ST elevated myocardial in farction) July 06, 2025 3:30pm Additional Source Comments (unrecognized sect ion and content) No Status Records Found INFORMATION SOURCE (unrecogn ized section and content) DATE CREATED AUTHOR 12/19/2021 [facility] Care Teams (unrecognized sec tion and content) Team Status: Active Member Role/Relationship Status Dates [facility] Primary Care Provider Active Team Status: Active Member Role/Relationship Status Dates Dr. Lashay James MD Emergency Provider Active S tart: July 06, 2025 [facility] Primary [facility] Provider Active Start: July 06, 2025 Dr. Maren Castro MD Admit Provider Active Star t: July 06, 2025 Dr. Maren Castro MD Attending Provider Active Start: July 06, 2025 Team Status: Active Member Role/Relationship Status Dates Dr. Lashay James MD Emergency Provider Active S tart: July 06, 2025 [facility] Primary Care Provider Active Start: July [...] BE BASED ON THE PRIMARY CLINICAL RECORDS. [facility] [employer] [facility]. provides no warranty or guarantee of the accuracy or completeness of information in this document.
[2025-07-07] VITALS (11 sets, daily range): BP systolic 107–133; BP diastolic 51–67; PULSE 60–65; RESP 16–18; TEMP 36.5–37.1; O2SAT 88–96; BMI 19.3
[2025-07-07 02:23] LABS: Partial Thromboplast Time 35.6 Seconds (24.1-36.2)
[2025-07-07] MEDS: Heparin Nomogram Adjustment 5,000 UNIT/ML VIAL IV (03:00)
[2025-07-07 06:02] LABS: Hematocrit 35.0 % (40-54); Hemoglobin 11.5 g/dL (13.0-16.5); Immature Granulocytes Count 0.040 X10^3/uL (0.0-0.0); Mean Corp Hgb Conc 32.9 g/dL (32-36); Mean Corpuscular Volume 87.9 fL (80-94); Mean Platelet Vol. 10.7 fl (6.2-12.0); NRBC Flagged by Analyzer 0 % (0-5); Platelet Count 356 K/mm3 (150-450); RBC Distribution Width CV 13.0 % (11.6-14.6); RBC Distribution Width SD 40.7 fl (35.1-43.9); Red Blood Count 3.98 M/mm3 (4.6-6.2); White Blood Count 11.6 K/mm3 (4.4-11.0)
[2025-07-07 06:09] LABS: Prothrombin Time (Protime)PT. 16.5 SECONDS (11.7-14.9)
[2025-07-07 06:44] LABS: Anion Gap 10 (5-15); BUN 20 mg/dL (4-19); BUN/Creat Ratio 14.8 RATIO (10-20); Calcium,Total 8.3 mg/dL (7.6-11.0); Carbon Dioxide 23.2 mmol/L (21.0-32.0); Chloride 109 mmol/L (98-108); Cholesterol 95 mg/dL (<=200); Estimated Creatinine Clearance 40.58 ml/min (50-250); Glucose 102 mg/dL (70-99); Low Density Lipoprotein Calc. 44 mg/dL; Magnesium 2.0 mg/dL (1.5-2.2); Potassium 4.1 mmol/L (3.3-5.1); Triglycerides 56 mg/dL; Very Low Density Lipoprotein 11 mg/dL (5-40); cholesterol:hdl ratio screen 2.38
[2025-07-07] MEDS: Ensure Plus High Protein 120 ML LIQUID PO (08:24)
--- NOTE | 2025-07-07 08:30 | PCM.PN.CARD ---
Subjective Subjective Patient reports he continues to have some mild chest discomfort it is residual from what he presented with yesterday. His enzymes have continued to go down it was 2059, 2036, and 2000. ECG shows evolution of anterior T waves consistent with his known coronary anatomy. We [facility] further evaluation with heart team approach for bypass surgery versus high risk percutaneous intervention given his heavily calcified LAD diagonal system. Objective Data Vital Signs: Vital Signs Temp Pulse Resp BP Pulse Ox O2 Del Method O2 Flow Rate 98.0 F 65 18 129/66 H 94 Nasal Cannula 2 07/07/25 08:19 07/07/25 08:24 07/07/25 08:19 07/07/25 08:24 07/07/25 08:19 07/07/25 08:19 07/07/25 08:19 Oxygen Flow Rate (L/min) 2 Oxygen Delivery Method Nasal Cannula Weight: 146 lb 9.718 oz Body Mass Index (BMI) 19.3 Intake & Output: Intake and Output for Last 24 Hours 07/05/25 07/06/25 07/07/25 23:59 23:59 23:59 Intake Total 214.85 / 214.85 58.05 / 58.05 Balance 214.85 / 214.85 58.05 / 58.05 Lab / Micro Data Attestation: I reviewed the patient's lab results. 07/07/25 05:43 07/07/25 05:43 Labs: Laboratory Results - last 24 hr 07/06/25 13:02: WBC 15.1 H, RBC 4.80, Hgb 14.0, Hct 42.5, MCV 88.5, MCH 29.2, MCHC 32.9, RDW Std Deviation 41.8, RDW Coeff of Lauren 13.0, Plt Count 475 H, MPV 10.3, Immature Gran % (Auto) 0.400, Neut % (Auto) 74.5 H, Lymph % (Auto) 14.7 L, [place] % (Auto) 9.6, Eos % (Auto) 0.5, Baso % (Auto) 0.3, Absolute Neuts (auto) 11.2 H, Absolute Lymphs (auto) 2.22, Nucleated RBC % 0, PT 13.8, INR 1.0, APTT 31.4, Sodium 144, Potassium 3.9, Chloride 107, Carbon Dioxide 23.7, Anion Gap 13, BUN 20 H, Creatinine 1.30 H, Estim Creat Clear Calc 41.60 L, Est GFR (MDRD) Non-Af 55 L, BUN/Creatinine Ratio 15.0, Glucose 113 H, Calcium 8.9, Troponin T High Sens 2059 H* 07/06/25 16:19: Troponin T Hi Sens 2 Hr 2036 H* 07/06/25 17:32: Troponin T Hi Sens 4Hr 2000 H* 07/07/25 02:08: APTT 35.6 07/07/25 05:43: WBC 11.6 H, RBC 3.98 L, Hgb 11.5 L, Hct 35.0 L, MCV 87.9, MCH 28.9, MCHC 32.9, RDW Std Deviation 40.7, RDW Coeff of Lauren 13.0, Plt Count 356, MPV 10.7, Immature Gran % (Auto) 0.300, Neut % (Auto) 65.2, Lymph % (Auto) 21.6, [place] % (Auto) 11.4 H, Eos % (Auto) 1.0, Baso % (Auto) 0.5, Absolute Neuts (auto) 7.6, Absolute Lymphs (auto) 2.51, Nucleated RBC % 0, PT 16.5 H, INR 1.3, Sodium 142, Potassium 4.1, Chloride 109 H, Carbon Dioxide 23.2, Anion Gap 10, BUN 20 H, Creatinine 1.32 H, Estim Creat Clear Calc 40.58 L, Est GFR (MDRD) Non-Af 54 L, BUN/Creatinine Ratio 14.8, Glucose 102 H, Calcium 8.3, Magnesium 2.0, Triglycerides 56, Cholesterol 95, LDL Cholesterol, Calc 44, VLDL Cholesterol 11, HDL Cholesterol 40, Cholesterol/HDL Ratio 2.38, TSH 2.950 Micro: Microbiology 07/06/25 16:55 Nasal Secretion SARS-CoV-2 Antigen (Rapid) - Final Rhythm Strip Rhythm Strip: Sinus bradycardia Rate: 50 Cardiology Labs/Tests 07/06/25 13:02: WBC 15.1 H, RBC 4.80, Hgb 14.0, Hct 42.5, MCV 88.5, MCH 29.2, MCHC 32.9, Plt Count 475 H, MPV 10.3, Immature Gran % (Auto) 0.400, Neut % (Auto) 74.5 H, Lymph % (Auto) 14.7 L, [place] % (Auto) 9.6, Eos % (Auto) 0.5, Baso % (Auto) 0.3, Absolute Neuts (auto) 11.2 H, Nucleated RBC % 0, PT 13.8, INR 1.0, APTT 31.4, Sodium 144, Potassium 3.9, Chloride 107, Carbon Dioxide 23.7, Anion Gap 13, BUN 20 H, Creatinine 1.30 H, Est GFR (MDRD) Non-Af 55 L, BUN/Creatinine Ratio 15.0, Glucose 113 H, Calcium 8.9 07/07/25 02:08: APTT 35.6 07/07/25 05:43: WBC 11.6 H, RBC 3.98 L, Hgb 11.5 L, Hct 35.0 L, MCV 87.9, MCH 28.9, MCHC 32.9, Plt Count 356, MPV 10.7, Immature Gran % (Auto) 0.300, Neut % (Auto) 65.2, Lymph % (Auto) 21.6, [place] % (Auto) 11.4 H, Eos % (Auto) 1.0, Baso % (Auto) 0.5, Absolute Neuts (auto) 7.6, Nucleated RBC % 0, PT 16.5 H, INR 1.3, Sodium 142, Potassium 4.1, Chloride 109 H, Carbon Dioxide 23.2, Anion Gap 10, BUN 20 H, Creatinine 1.32 H, Est GFR (MDRD) Non-Af 54 L, BUN/Creatinine Ratio 14.8, Glucose 102 H, Calcium 8.3, Magnesium 2.0, Triglycerides 56, Cholesterol 95, VLDL Cholesterol 11, HDL Cholesterol 40, Cholesterol/HDL Ratio 2.38 Rhythm: EKG: ECHO: Stress Test: Cardiac Cath: PCI: CT Surgery: Holter monitor: EPS: PPM: CXR: Chest CT Scan: Radiography Diagnostic Testing: Radiology Impression Chest X-Ray 07/06/25 13:20 IMPRESSION: No acute cardiopulmonary process. Reading [id number] Physical Exam Narrative Frail-appearing Const alert and oriented x3 HEENT normocephalic Eyes EOMs intact bilaterally Neck no JVD Chest inspection of chest normal Chest Narrative: Thin Resp normal respiratory effort and clear to auscultation bilaterally Cardio Rate: bradycardia Rhythm: regular rhythm Heart Sounds: S1 normal and S2 normal; Negative for click, gallop or murmur Extremity Extremity Narrative: Right wrist minimal ecchymosis mildly tender to palpation. Right hand good capillary refill normal sensory exam. Neuro Neuro Narrative: Alert and oriented x 3 Psych mental status grossly normal Assessment & Plan Assessment/Plan (1) Non-STEMI (non-ST elevated myocardial infarction): PLAN: Patient presented with an unusual ST elevation in lead V1. His troponin was positive at 2016 and he was taken to the [facility]. Complex coronary anatomy was defined with heavily calcified LAD diagonal system with critical disease as well as a right coronary artery that appeared to have a recanalized chronic total obstruction in the middle third and filled faintly via collaterals in the distal posterior ventricular branch. (2) CAD (coronary artery disease): QUALIFIERS: Coronary Disease-Associated Artery/Lesion type: [place] artery [place] vs. transplanted heart: [place] heart Associated angina: with unstable angina Qualified Code(s): I25.110 - Atherosclerotic heart disease of [place] coronary artery with unstable angina pectoris PLAN: Complex coronary anatomy was defined with heavily calcified LAD diagonal system with critical disease as well as a right coronary artery that appeared to have a recanalized chronic total obstruction in the middle third and filled faintly via collaterals in the distal posterior ventricular branch. This was not felt to be ideally suited for either direct stenting with drug-eluting stent or bypass graft surgery. The patient requested to be transferred to the [place] system for further evaluation and a heart team approach to determine the best option as far as high risk percutaneous intervention in a heavily calcified vessel versus surgical revascularization. Awaiting transfer. Will continue IV heparin and aspirin. Patient is on low-dose metoprolol tartrate 12.5 mg twice daily heart rate is 50 bpm blood pressure stable. The patient does continue to have some atypical type chest symptoms in his enzymes are trending down. ECG is consistent with an evolving anterior wall insult. Echocardiogram is pending at this time. PLAN: Plan 1. Continue heparin IV. 2. Will await transfer to [place] system. 3. Dr. Whitney to assume the service starting tomorrow. Charges/Coding Visit Charges Inpatient E&M: 64548 Subs Hosp L2
--- NOTE | 2025-07-07 09:38 | CASEMGMT ---
MACHELLE BLOOM received voicemail from MERLE Warren at [facility], ext [phone]. MACHELLE BLOOM returned call, no answer, voicemail left with return contact information.
[2025-07-07 11:05] LABS: Partial Thromboplast Time 201.2 Seconds (24.1-36.2)
--- NOTE | 2025-07-07 11:15 | CASEMGMT ---
MACHELLE BLOOM [facility] and spoke angel Boyce. Per Austen, MERLE Warren who is assigned to case comes in at 3:00pm. MACHELLE BLOOM inquired with Austen if there is anyone covering till Kelvin comes in as we are trying to get patient transferred for CABG evaluation. Austen states he will follow-up with his underwriting clerks supervisor and call this RN MERLE back. CM awaiting call back from [facility]. CM will continue to assist with transfer.
--- NOTE | 2025-07-07 16:00 | CASEMGMT ---
MACHELLE BLOOM called [facility] again and was able to get ahold of MERLE Warren. Per Kelvin, there are no cardiac beds available at this time. Kelvin provided Destiny's information(p: [phone]) to follow up tomorrow after 12 noon as Kelvin does not work till 1500. Kelvin requested updated clinicals be faxed in the morning to f: [phone]. MACHELLE BLOOM updated hospitalist and PCU charge nurse.
--- NOTE | 2025-07-07 18:19 | PN.HOSP_ITS ---
Reason for Visit Chief Complaint: Chest pain Subjective Subjective Patient was seen and examined today, he has no complaints of any chest pain or shortness of breath. [facility] informed us that they do not have a bed available for the patient today. I talked briefly with cardiology about his care today. Objective Data Objective Data Vital Signs: Vital Signs Temp Pulse Resp BP Pulse Ox O2 Del Method O2 Flow Rate 97.7 F L 63 18 133/67 H 90 Nasal Cannula 3 07/07/25 16:45 07/07/25 16:45 07/07/25 16:45 07/07/25 16:45 07/07/25 16:45 07/07/25 16:45 07/07/25 16:45 Oxygen Flow Rate (L/min) 3 Oxygen Delivery Method Nasal Cannula Weight: 66.5 kg Body Mass Index (BMI) 19.3 Intake & Output: Intake and Output for Last 24 Hours 07/05/25 07/06/25 07/07/25 23:59 23:59 23:59 Intake Total 214.85 / 214.85 500.20 / 500.20 Balance 214.85 / 214.85 500.20 / 500.20 Medical Nutrition Assessment Dietitian: Malnutrition Criteria Met Start: 07/07/25 11:07 Freq: Status: Active Protocol: Document 07/07/25 11:07 RMA (Rec: 07/07/25 11:08 RMA [id number]) Nutrition Malnutrition Evidence of Yes Malnutrition Exists Malnutrition ( Chronic moderate): Evidenced By Suboptimal Energy Intake (Moderate),Weight Loss ( Moderate),Physical Changes (Moderate) Clinical Problem Chronic Disease or Condition Related Malnutrition Etiology Moderate protein-calorie malnutrition in the context of chronic disease/debility related to inadequate oral/ energy intake Signs/Symptoms as evidenced by BMI 19.3, unintentional weight loss ~5 -6% of body x past 2-3 months, oral intake meeting less than 75% of estimated nutrition needs x past 2-3 months. Pt with physical signs of muscle wasting and fat depletion in the clavicle, orbital, face, arms and legs. Status Active Problem Recommendation Dietitian Will continue cardiac diet; liberalize if PO does not Recommendations/ improve at meals. Changes Will d/c 120mL ensure plus HP 4 times per day with medpass and add 240mL vanilla ensure plus HP w/ lunch and dinner instead. Will add additional ONS as needed if weight continues to decline. Lab / Micro Data 07/07/25 05:43 07/07/25 05:43 Labs: Laboratory Results - last 24 hr 07/06/25 17:32: Troponin T Hi Sens 4Hr 2001 H* 07/07/25 02:08: APTT 35.6 07/07/25 05:43: WBC 11.6 H, RBC 3.98 L, Hgb 11.5 L, Hct 35.0 L, MCV 87.9, MCH 28.9, MCHC 32.9, RDW Std Deviation 40.7, RDW Coeff of Lauren 13.0, Plt Count 356, MPV 10.7, Immature Gran % (Auto) 0.300, Neut % (Auto) 65.2, Lymph % (Auto) 21.6, [place] % (Auto) 11.4 H, Eos % (Auto) 1.0, Baso % (Auto) 0.5, Absolute Neuts (auto) 7.6, Absolute Lymphs (auto) 2.51, Nucleated RBC % 0, PT 16.5 H, INR 1.3, Sodium 142, Potassium 4.1, Chloride 109 H, Carbon Dioxide 23.2, Anion Gap 10, BUN 20 H, Creatinine 1.32 H, Estim Creat Clear Calc 40.58 L, Est GFR (MDRD) Non-Af 54 L, BUN/Creatinine Ratio 14.8, Glucose 102 H, Calcium 8.3, Magnesium 2.0, Triglycerides 56, Cholesterol 95, LDL Cholesterol, Calc 44, VLDL Cholesterol 11, HDL Cholesterol 40, Cholesterol/HDL Ratio 2.38, TSH 2.950 07/07/25 08:55: APTT 201.2 H* Micro: Microbiology 07/06/25 16:55 Nasal Secretion SARS-CoV-2 Antigen (Rapid) - Final Radiography Diagnostic Testing: Radiology Impression Echocardiogram 07/06/25 16:22 Interpretation Summary Mid to distal inferior septal, anterior septal, anterior and apical wall segments severely hypokinetic to akinetic. Estimated LVEF 35%. Stage I diastolic dysfunction. Mild tricuspid valve insufficiency. Mildly calcified aortic valve. Mild aortic valve stenosis. Aortic valve area 1.5 cm??. Moderate eccentric aortic valve regurgitation. Mild (1+) pulmonic valve insufficiency. Ordering Physician: Maren Castro Performed By: Alvino Gibson RCS Rhythm Strip Rhythm Strip: Sinus bradycardia Rate: 50 Physical Exam Const alert, oriented x3, no apparent distress and average body habitus General Appearance: cooperative, well kempt and well developed Orientation / Consciousness: awake, oriented to person, oriented to place and oriented to time HEENT normocephalic, head/scalp atraumatic and moist oral mucous membranes Eyes PERRL, EOMs intact bilaterally and conjunctivae normal Neck supple, no JVD, thyroid normal and no carotid bruits General: trachea midline Resp normal respiratory effort, no retractions, no use of accessory muscles and clear to auscultation bilaterally Auscultation: Negative for rales, rhonchi or wheezes Cardio regular rate, regular rhythm, S1 normal heart sound, S2 normal heart sound, no murmurs, no rub and no gallops GI normal to inspection, nondistended, normoactive bowel sounds, soft to palpation, non-tender and non-distended Extremity no clubbing, cyanosis or edema Skin no rashes or lesions noted General Skin Exam: no breakdown Neuro oriented x3, CN's II-XII intact bilaterally, moves all extremities, no focal motor deficits and no sensory deficits noted Sensorium / Orientation: awake and alert Speech: speech normal Psych affect normal Assessment & Plan Assessment/Plan (1) Non-STEMI (non-ST elevated myocardial infarction): PLAN: Plan 1. [id number] will remain on his current medications including IV heparin and aspirin. Patient is also on low-dose metoprolol. #2 occlusive coronary artery disease-patient is awaiting bed availability at the [facility], he request that he be transferred to that hospital rather than use his Medicare A insurance. Again, cardiology is participating in his care and he is not having any episodes of chest pain or shortness of breath at this time. Patient's echocardiogram today showed an EF of 35% without severe valvular disease. #3 chronic neuropathy-patient is on Lyrica #4 ischemic cardiomyopathy-patient's EF is 35% at this time, continue present cardiac medications, cardiology is participating in his care Total clinical time spent by myself addressing the patient's medical issues, reviewing all of his data, and collaborating with patient's care team: 35 minutes Charges/Coding Visit Charges Inpatient E&M: 36468 Subs Hosp L2
[2025-07-07 19:35] LABS: Partial Thromboplast Time 79.7 Seconds (24.1-36.2)
[2025-07-07] MEDS: 0.9% Saline Lock 10 ML Syringe IV (23:01)
[2025-07-08] VITALS (7 sets, daily range): BP systolic 123–149; BP diastolic 50–70; PULSE 60–70; RESP 16–18; TEMP 36.8–37.2; O2SAT 91–95; BMI 18.1
[2025-07-08 03:04] LABS: Hematocrit 33.5 % (40-54); Hemoglobin 11.1 g/dL (13.0-16.5); Immature Granulocytes Count 0.050 X10^3/uL (0.0-0.0); Mean Corp Hgb Conc 33.1 g/dL (32-36); Mean Corpuscular Volume 88.2 fL (80-94); Mean Platelet Vol. 11.4 fl (6.2-12.0); NRBC Flagged by Analyzer 0 % (0-5); Platelet Count 302 K/mm3 (150-450); RBC Distribution Width CV 13.1 % (11.6-14.6); RBC Distribution Width SD 41.2 fl (35.1-43.9); Red Blood Count 3.80 M/mm3 (4.6-6.2); White Blood Count 9.9 K/mm3 (4.4-11.0)
[2025-07-08 03:08] LABS: Partial Thromboplast Time 83.5 Seconds (24.1-36.2)
[2025-07-08] MEDS: HEPARIN/D5w 25,000 UNITS 25,000 UNITS/250 ML IV.SOLN. 6.1 UNITS CONT INF (03:28)
[2025-07-08 11:17] LABS: Partial Thromboplast Time 46.7 Seconds (24.1-36.2)
--- NOTE | 2025-07-08 12:42 | CASEMGMT ---
MACHELLE BLOOM faxed updated clinicals to [facility] and called and spoke with Destiny in the Transfer Center. Per Destiny, there are no beds available at this time. Per Destiny since patient is requiring emergent care that he could be transferred to another tertiary facility and [facility] that [facility]. Destiny states she has noted the patient chart so they have record of need for emergent care. MACHELLE BLOOM updated patient regarding transfer and no bed available and that [facility] will cover for patient to transfer to another facility since they cannot provide service at this time. Patient states he would prefer [facility]. Patient had no further questions or concerns. MACHELLE BLOOM updated PCU charge nursing and hospitalist.
[2025-07-08 18:44] LABS: Partial Thromboplast Time 49.3 Seconds (24.1-36.2)
--- NOTE | 2025-07-08 19:01 | PN.HOSP_ITS ---
Reason for Visit Chief Complaint: Chest pain Subjective Subjective Patient was seen and examined today, case management contacted the [facility] and was told there were no beds at the OR facility in [place], they did give permission for the patient to go to another hospital and they would pickle processor the bill. Patient wanted to go to [facility], they contacted me earlier this evening and told me that he was accepted and they are looking for a bed for him. Objective Data Objective Data Vital Signs: Vital Signs Temp Pulse Resp BP Pulse Ox O2 Del Method O2 Flow Rate 98.4 F 61 18 123/50 H 91 Nasal Cannula 2 07/08/25 15:00 07/08/25 15:00 07/08/25 15:00 07/08/25 15:00 07/08/25 15:00 07/08/25 15:00 07/08/25 15:00 Oxygen Flow Rate (L/min) 2 Oxygen Delivery Method Nasal Cannula Weight: 62.2 kg Body Mass Index (BMI) 18.1 Intake & Output: Intake and Output for Last 24 Hours 07/06/25 07/07/25 07/08/25 23:59 23:59 23:59 Intake Total 214.85 / 214.85 933.45 / 933.45 704.78 / 704.78 Balance 214.85 / 214.85 933.45 / 933.45 704.78 / 704.78 Medical Nutrition Assessment Dietitian: Malnutrition Criteria Met Start: 07/07/25 11:07 Freq: Status: Active Protocol: Document 07/07/25 11:07 RMA (Rec: 07/07/25 11:08 RMA [id number]) Nutrition Malnutrition Evidence of Yes Malnutrition Exists Malnutrition ( Chronic moderate): Evidenced By Suboptimal Energy Intake (Moderate),Weight Loss ( Moderate),Physical Changes (Moderate) Clinical Problem Chronic Disease or Condition Related Malnutrition Etiology Moderate protein-calorie malnutrition in the context of chronic disease/debility related to inadequate oral/ energy intake Signs/Symptoms as evidenced by BMI 19.3, unintentional weight loss ~5 -6% of body x past 2-3 months, oral intake meeting less than 75% of estimated nutrition needs x past 2-3 months. Pt with physical signs of muscle wasting and fat depletion in the clavicle, orbital, face, arms and legs. Status Active Problem Recommendation Dietitian Will continue cardiac diet; liberalize if PO does not Recommendations/ improve at meals. Changes Will d/c 120mL ensure plus HP 4 times per day with medpass and add 240mL vanilla ensure plus HP w/ lunch and dinner instead. Will add additional ONS as needed if weight continues to decline. Lab / Micro Data 07/08/25 02:37 07/07/25 05:43 Labs: Laboratory Results - last 24 hr 07/07/25 17:57: APTT 79.7 H 07/08/25 02:37: WBC 9.9, RBC 3.80 L, Hgb 11.1 L, Hct 33.5 L, MCV 88.2, MCH 29.2, MCHC 33.1, RDW Std Deviation 41.2, RDW Coeff of Lauren 13.1, Plt Count 302, MPV 11.4, Immature Gran % (Auto) 0.500, Neut % (Auto) 56.5, Lymph % (Auto) 27.3, [place] % (Auto) 10.0, Eos % (Auto) 5.2 H, Baso % (Auto) 0.5, Absolute Neuts (auto) 5.6, Absolute Lymphs (auto) 2.71, Nucleated RBC % 0, APTT 83.5 H 07/08/25 10:10: APTT 46.7 H 07/08/25 17:46: APTT 49.3 H Micro: Microbiology 07/06/25 16:55 Nasal Secretion SARS-CoV-2 Antigen (Rapid) - Final Rhythm Strip Rhythm Strip: Sinus bradycardia Rate: 50 Physical Exam Narrative alert, oriented x3, no apparent distress and average body habitus General Appearance: cooperative, well kempt and well developed Orientation / Consciousness: awake, oriented to person, oriented to place and oriented to time HEENT normocephalic, head/scalp atraumatic and moist oral mucous membranes Eyes PERRL, EOMs intact bilaterally and conjunctivae normal Neck supple, no JVD, thyroid normal and no carotid bruits General: trachea midline Resp normal respiratory effort, no retractions, no use of accessory muscles and clear to auscultation bilaterally Auscultation: Negative for rales, rhonchi or wheezes Cardio regular rate, regular rhythm, S1 normal heart sound, S2 normal heart sound, no murmurs, no rub and no gallops GI normal to inspection, nondistended, normoactive bowel sounds, soft to palpation, non-tender and non-distended Extremity no clubbing, cyanosis or edema Skin no rashes or lesions noted General Skin Exam: no breakdown Neuro oriented x3, CN's II-XII intact bilaterally, moves all extremities, no focal motor deficits and no sensory deficits noted Sensorium / Orientation: awake and alert Speech: speech normal Psych affect normal Assessment & Plan Assessment/Plan (1) Non-STEMI (non-ST elevated myocardial infarction): PLAN: Plan 1. [id number] will remain on his current medications including IV heparin and aspirin. Patient is also on low-dose metoprolol. #2 occlusive triple-vessel coronary artery disease-[facility] has excepted the patient, they will be trying to locate a bed for him and hopefully he can be transferred up there tonight. #3 chronic neuropathy-patient is on Lyrica #4 ischemic cardiomyopathy-patient's EF is 35% at this time, continue present cardiac medications, cardiology is participating in his care Total clinical time spent by myself addressing the patient's medical issues, reviewing all of his data, and collaborating with patient's care team: 35 minutes Charges/Coding Visit Charges Inpatient E&M: 73748 Subs Hosp L2
--- NOTE | 2025-07-08 22:30 | NURSING ---
Report called to Jose Trujillo to the PCU and report given to MACHELLE Orellana.
--- NOTE | 2025-07-08 23:10 | NURSING ---
pt asked for this RN to call family member Geni Kevyn to give an update about thie transfer to [facility]. This RN called and spoke with Geni. Geni was appreciative of the update and thanked [facility] for all that we did to help Kirt Juni.
--- NOTE | 2025-07-09 07:02 | DS.PCM_ITS ---
Providers Date of Admission: 07/06/25 Date of Discharge: 07/08/25 Primary Care Physician: [facility] Consultations 07/06/25 16:22 Consult: Cardiology Routine Consulting Provider: Delgado Whitney Reason for Consult: Elevated troponin, heart cath, coronary artery disease EMERGENT Consult: No MD Notified: Yes Date Notified: 07/06/25 Time Notified: 16:24 Method of Notification: ED Physician Initiated Reason For Visit: NONSTEMI Diagnosis Discharge Diagnosis (1) Non-STEMI (non-ST elevated myocardial infarction): Status: Acute Code(s): I21.4 - Non-ST elevation (NSTEMI) myocardial infarction Plan 1. [id number] will remain on his current medications including IV heparin and aspirin. Patient is also on low-dose metoprolol. #2 occlusive triple-vessel coronary artery disease-[facility] has excepted the patient, they will be trying to locate a bed for him and hopefully he can be transferred up there tonight. #3 chronic neuropathy-patient is on Lyrica #4 ischemic cardiomyopathy-patient's EF is 35% at this time, continue present cardiac medications, cardiology is participating in his care Total clinical time spent by myself addressing the patient's medical issues, reviewing all of his data, and collaborating with patient's care team: 35 minutes Medications at Discharge Home Medications trazodone 100 mg tablet 50 mg PO QHS insomnia 06/29/21 aspirin 81 mg capsule 81 mg PO DAILY blood thinner 07/06/25 pregabalin 50 mg capsule (Lyrica) 50 mg PO BID neuropathy 07/06/25 Hospital Course Operations None Procedures 2-D Echocardiogram and Cardiac catheterization Summary of Care Provided Minutes Spent on Discharge: 31 Hospital Course: This 84-year-old white male was seen in the emergency room at [facility] with complaints of chest pain that have been going on since the day before. Patient described the chest pain as being left-sided. Patient did not have any chest pain at the time of examination in the ER, labs were obtained which were abnormal for a white blood cell count of 15.1, chemistry profile was remarkable for a creatinine of 1.3 and a BUN of 20, patient's troponin was 2060. Chest x-ray showed no acute cardiopulmonary process, patient's EKG showed inverted T waves from V2 through V6 with Q waves in leads II, III and aVF. Patient was felt to have a non-STEMI, he was taken directly to the cardiac Tax Map Technician and cardiac catheterization noted the patient to have triple-vessel coronary disease and it was recommended the patient be transferred to another facility for evaluation for coronary artery bypass or high risk stenting. Patient preferred to go to the [facility], he was placed on IV heparin and remained medically stable while waiting for a bed at the [facility], when it became evident that there would be a longer wait for him to go to the [place], case management called and got permission for the patient to be transferred to another tertiary hospital-patient requested [facility], they agreed to take the patient. On 07/08/2025, patient was seen and examined: On examination he appeared in good health and spirits. Vital signs as documented. Skin warm and dry and without overt rashes. Neck without JVD, neck was supple, trachea midline, thyroid was normal. Lungs clear bilaterally, normal air movement was noted. Heart exam notable for regular rhythm, normal sounds and absence of murmurs, rubs or gallops. Abdomen unremarkable and without evidence of organomegaly, masses, or abdominal aortic enlargement. Bowel sounds are present, abdomen is not distended. Extremities nonedematous, no cyanosis was noted, no clubbing was noted. Neuro: Cranial nerves II through XII are grossly intact, no focal motor deficits were noted, sensation to light touch and pinprick intact, motor exam 5/5 throughout. Psych: Patient is alert and oriented x3, he does not appear anxious or depressed, he does not appear agitated. Patient appears to be stable for discharge on 07/08/2025, he was transferred to [facility] stable condition. Weight / BMI Weight Weight: 62.2 kg Body Mass Index (BMI) 18.1 ABG / Lab / Microbiology Data 07/08/25 02:37 07/07/25 05:43 Laboratory: Laboratory Results - last 24 hr 07/08/25 10:10: APTT 46.7 H 07/08/25 17:46: APTT 49.3 H Microbiology: Microbiology 07/06/25 16:55 Nasal Secretion SARS-CoV-2 Antigen (Rapid) - Final D/C Instructions DC O2, CPAP, BIPAP Needs Home O2 Discharge instructions: No Meaningful Use Info Meaningful Use Meaningful Use Diagnoses (Choose all that apply): AMI AMI/Post PCI/Angioplasty Aspirin given w/in 24hrs of arrival?: Yes ASA at discharge?: Yes Antiplatelet Therapy at Discharge:: Yes Statins at discharge?: Yes Osvaldo/ARB at discharge?: Yes Beta Gina at discharge?: Yes Done w/ Acute [place] measure.: Yes Documented LVEF (%): 35 Discharge Plan Admission Admit Date/Time: 07/06/25 15:30 Attending Provider: Humza Land Primary Care Provider: [facility] Consulting Providers: Delgado Whitney; Maren Castro Discharge Orders/Prescriptions Prescriptions: No Action trazodone 100 mg Tablet 50 mg PO QHS pregabalin [Lyrica] 50 mg capsule 50 mg PO BID aspirin 81 mg capsule 81 mg PO DAILY Referrals / Follow Up: [facility] [Primary Care Provider] - Disposition Disposition (needs filled in before D/C Order can be placed): Acute Care Hospital Charges/Coding Visit Charges Inpatient E&M: 24155 Disch Hosp >30min
== END 2025-07-08 23:00 | disposition short-term general hospital (02) | DRG 281 ==
LOC: ED 13:36 → CLSP 14:50 → PCU 16:01
PROVIDERS: Admitting Provider Internal Medicine; Emergency Provider Student in an Organized Health Care Education/Training Program; Visit Provider Internal Medicine
DX: I21.4 Non-ST elevation (NSTEMI) myocardial infarction (principal); E44.0 Moderate protein-calorie malnutrition; Z68.1 Body mass index [BMI] 19.9 or less, adult; Z66 Do not resuscitate; I10 Essential (primary) hypertension; I65.22 Occlusion and stenosis of left carotid artery; I25.110 Atherosclerotic heart disease of native coronary artery with unstable angina pectoris; I25.5 Ischemic cardiomyopathy; G62.9 Polyneuropathy, unspecified; I49.8 Other specified cardiac arrhythmias; Z79.82 Long term (current) use of aspirin; Z79.899 Other long term (current) drug therapy; Z87.891 Personal history of nicotine dependence
CPT/HCPCS: 36415; 71045; 80048; 80061; 83735; 84443; 84484; 85025; 85610; 85730; 87426; 93005; 93306; 93458; 94668; 97802; 99152; 99153; 99285; C1894; Q9957; Q9967; A4216; C1769; C8929